=== PATIENT | male | born 1990 | race Caucasian/White ===

== ENCOUNTER → 2025-03-31 | Outpatient (CLI) | payer MEDICAID, SELFPAY ==
[2025-03-31 16:01] LABS: Absolute Lymphocyte Count 1.94 X10^3/uL (0.83-4.51); Absolute Neutrophil Count 8.3 X10^3/uL (2.0-7.7); Basophil# 0.03 X10^3/uL; Basophil% 0.3 % (0-1); Eosinophil# 0.33 X10^3/uL; Eosinophils% 2.9 % (0-5); Hematocrit 44.1 % (40-54); Hemoglobin 15.3 g/dL (13.0-16.5); Lymphocyte # 1.94 X10^3/ul (0.83-4.51); Mean Corp Hgb Conc 34.7 g/dL (32-36); Mean Corpuscular Volume 89.5 fL (80-94); Monocyte# 0.75 X10^3/uL; Monocyte% 6.6 % (0-10); NRBC Flagged by Analyzer 0 % (0-5); Neutrophil # 8.33 X10^3/uL (2.7-7.7); Neutrophil % 72.9 % (47-70); Platelet Count 241 K/mm3 (150-450); RBC Distribution Width CV 12.7 % (11.6-14.6); RBC Distribution Width SD 41.4 fl (35.1-43.9); Red Blood Count 4.93 M/mm3 (4.6-6.2); White Blood Count 11.4 K/mm3 (4.4-11.0)
[2025-03-31 16:41] LABS: ALB/GLOB Ratio 1.5 RATIO (0.9-2.4); AST(SGOT) 21 U/L (<=37); Alanine Aminotransfer ALT/SGPT 35 U/L (<=46); Albumin, Serum 4.3 g/dL (3.5-5.0); Alkaline Phosphatase 94 U/L (40-129); Anion Gap 10 (5-15); BUN 14 mg/dL (4-19); BUN/Creat Ratio 19.1 RATIO (10-20); Calcium,Total 9.1 mg/dL (7.6-11.0); Carbon Dioxide 26.4 mmol/L (21.0-32.0); Chloride 101 mmol/L (98-108); Cholesterol 172 mg/dL (<=200); Creatinine, Serum 0.74 mg/dL (0.70-1.20); EST Glomerular Filtration Rate 120 (>60); Globulin 2.9 g/dL (2.2-4.2); Glucose 91 mg/dL (70-99); High Density Lipoprotein 63 mg/dL; Low Density Lipoprotein Calc. 95 mg/dL; Potassium 4.1 mmol/L (3.3-5.1); Protein, Total 7.2 g/dL (5.9-8.4); Sodium Level 138 mmol/L (133-145); Total Bilirubin 0.81 mg/dL (0.00-1.30); Triglycerides 70 mg/dL; Very Low Density Lipoprotein 14 mg/dL (5-40); cholesterol:hdl ratio screen 2.73
[2025-03-31 16:44] LABS: Vitamin B12 549 pg/mL (180-914); Vitamin D,25 Hydroxy 14.7 ng/mL (30-100)
== END | disposition home or self-care (01) ==
LOC: VSLAB 14:04
PROVIDERS: PCP Nurse Practitioner Family; Visit Provider Nurse Practitioner Family
DX: R07.9 Chest pain, unspecified (principal); Z13.220 Encounter for screening for lipoid disorders; Z13.1 Encounter for screening for diabetes mellitus; R20.0 Anesthesia of skin
CPT/HCPCS: 36415; 80053; 80061; 82306; 82607; 82746; 83036; 83735; 84443; 85025

== ENCOUNTER 2025-07-24 13:42 | Emergency (ER) | payer MEDICAID, SELFPAY ==
[2025-07-24 13:43] VITALS: BP 97/76; PULSE 93; RESP 16; TEMP 37; O2SAT 100; BMI 30.3
--- OUTSIDE RECORDS SUMMARY | 2025-07-24 14:14 | XMS RPT_ITS | CCD ---
Author Organization [facility] Inform ion Partnership [facility] Care Team Providers Care Organ Pipe Voicer Name Role Phone BRANDON PACHECO Primary Care Provider BRANDON PACHECO Attending Provider MD MADAY MCCOY Primary Care Provider [phone] MD TADEO MCGEE Emergency Provider BRANDON PASCAL Primary Care Physician SPENCER VIEIRA, DR GRAHAM Attending BRANDON Pugh Primary Care Unavailable DR GLADYS PALMER MD Attending BRANDON Pugh Primary Care Unavailable GLADYS PALMER Attending Unavailable CARLOZ PETTIT Primary Care Unavailable Nadiya Melendez Attending Unavailable Nadiya Melendez Primary Care Unavailable Allergies Allergy Classification Reported Allergen(s) Allergy Type Date of Onset Reaction(s) Facility (1 source) Bee/Wasp/Ant venom Allergy to substance swelling [facility] (1 source) venom-honey bee Drug allergy (disorder) 08-23-2016 [facility] Repository Medications Current Medications Medication Drug Class(es) Dates Sig (Normalized) Sig (Original) acetaminophen 325 mg / oxyCODONE hydrochloride 5 mg oral tablet (1 source) Opioid Agonist Start: 01-28-2023 take 1 tablet by mouth four times daily Oxycodone Hcl/Acetaminophen (Percocet 5-325 Mg Tablet) 1 EACH Tablet Active 1 EACH PO Four Times a Day 12 January 28, 2023 12:00am aspirin 81 mg chewable tablet (2 sources) Platelet Aggregation Inhibitor, Nonsteroidal Anti-inflammatory Drug Start: 02-01-2021 take 1 tablet by mouth once daily Aspirin (Aspirin 81 Mg Chew Tablet) 81 MG Tablet Active 81 MG PO Daily February 01, 2021 12:40pm colchicine 0.6 mg oral tablet (2 sources) Start: 02-01-2021 take 1 tablet by mouth once daily Colchicine (Colchicine 0.6 Mg Tablet) 0.6 MG Tablet Active 0.6 MG PO Daily February 01, 2021 12:51pm 24 hr isosorbide mononitrate 30 mg extended release oral tablet (2 sources) Nitrate Vasodilator Start: 02-01-2021 take 1 tablet by mouth once daily Isosorbide Mononitrate Er (Imdur 30 Mg Tablet) 30 MG Tablet Active 30 MG PO Daily February 01, 2021 12:44pm nitroglycerin 0.4 mg sublingual tablet (2 sources) Nitrate Vasodilator Start: 02-01-2021 Nitroglycerin (Nitrostat 0.4 Mg Sl Tablet) 0.4 MG Bottle Active 0.4 MG SL Q5M February 01, 2021 12:40pm take one tab under the tongue every 5 minutes for chest pain maximum of 3 tablets pantoprazole 20 mg delayed release oral tablet (2 sources) Proton Pump Inhibitor Start: 02-01-2021 take 1 tablet by mouth once daily Pantoprazole Sodium (Protonix 20 Mg Tablet) 20 MG Tablet Active 20 MG PO Daily February 01, 2021 12:45pm Completed/Discontinued Medications Medication Drug Class(es) Dates Sig (Normalized) Sig (Original) metoprolol tartrate 25 mg oral tablet (3 sources) beta-Adrenergic Jazmin Start: 05-17-2024 End: 05-17-2024 metoprolol tartrate 25 mg oral tablet Start: 05/17/24 5:00:00 AM EDT, Dose = 50 mg, = 2 tab(s), Oral, prep pharm, 1 dose(s), Hold if SBP (mmHg) Notes: Take with food. 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-10-2017 Chronic Essential hypertension (1 source) Hypertensive disorder 08-29-2023 Chronic Fracture of lower limb (1 source) Fracture of ankle; Translations: [Other fracture of unspecified lower leg, initial encounter for closed fracture] 01-28-2023 Episodic Nonspecific chest pain (4 sources) Chest pain; Translations: [Chest pain, unspecified] Onset: 04-05-2025 01-30-2021 Episodic Other lower respiratory disease (1 source) Disorder of lung 03-07-2021 Episodic Residual codes; unclassified (2 sources) Current drinker; Translations: [Other problems related to lifestyle] 02-01-2021 Episodic Residual codes; unclassified (2 sources) Tobacco user; Translations: [Tobacco use] 02-01-2021 Episodic Results Test Name Value Interpretation Reference Range Facil ity CBC W/Diff, Automatedon 05-0 Absolute Lymph 1.94 X10 3/uL Normal 0.83-4.51 [facility] Comment on above: Performed By: #### L 100.0100, L500.4100, L503.0106, L501.9985, L501.5200, L506.1001, L501.9520, L500.4050, L506.0200 #### [facility] [address] [place], [address] Absolute Neut 8.3 X10 3/uL High 2.0-7.7 [facility] Comment on above: Performed By: #### L 100.0100, L500.4100, L503.0106, L501.9985, L501.5200, L506.1001, L501.9520, L500.4050, L506.0200 #### [facility] [address] [place], [address] Basophils/100 WBC (Bld) 0.3 % Normal 0-1 [facility] Comment on above: Performed By: #### L 100.0100, L500.4100, L503.0106, L501.9985, L501.5200, L506.1001, L501.9520, L500.4050, L506.0200 #### [facility] [address] [place], [address] Eosinophils/100 WBC (Bld) 2.9 % Normal 0-5 [facility] Comment on above: Performed By: #### L 100.0100, L500.4100, L503.0106, L501.9985, L501.5200, L506.1001, L501.9520, L500.4050, L506.0200 #### [facility] [address] [place], [address] (470) Erythrocyte distribution width (RBC) [Ratio] 12.7 % Normal 11.6-14.6 [facility] Comment on above: Performed By: #### L 100.0100, L500.4100, L503.0106, L501.9985, L501.5200, L506.1001, L501.9520, L500.4050, L506.0200 #### [facility] [address] [place], [address] (491) Hematocrit (Bld) [Volume fraction] 44.1 % Normal 40-54 [facility] Comment on above: Performed By: #### L 100.0100, L500.4100, L503.0106, L501.9985, L501.5200, L506.1001, L501.9520, L500.4050, L506.0200 #### [facility] [address] [place], [address] ( Hemoglobin (Bld) [Mass/Vol] 15.3 g/dL Normal 13.0-16.5 [facility] Comment on above: Performed By: #### L 100.0100, L500.4100, L503.0106, L501.9985, L501.5200, L506.1001, L501.9520, L500.4050, L506.0200 #### [facility] [address] [place], [address] IG% 0.300 Normal 0.0-0.9 [facility] Comment on above: Result Comment: IG% - Immature Granulocytes (promyelocytes, myelocytes and metamyelocytes) > 1% indicates that a LEFT SHIFT is Present. Performed By: #### L 100.0100, L500.4100, L503.0106, L501.9985, L501.5200, L506.1001, L501.9520, L500.4050, L506.0200 #### [facility] [address] [place], [address] Lymphocytes/100 WBC (Bld) 17.0 % Low 19-41 [facility] Comment on above: Performed By: #### L 100.0100, L500.4100, L503.0106, L501.9985, L501.5200, L506.1001, L501.9520, L500.4050, L506.0200 #### [facility] [address] [place], [address] MCH (RBC) [Entitic mass] 31.0 pg Normal 27.0-32.0 [facility] Comment on above: Performed By: #### L 100.0100, L500.4100, L503.0106, L501.9985, L501.5200, L506.1001, L501.9520, L500.4050, L506.0200 #### [facility] [address] [place], [address] MCHC (RBC) [Mass/Vol] 34.7 g/dL Normal 32-36 [facility] Comment on above: Performed By: #### L 100.0100, L500.4100, L503.0106, L501.9985, L501.5200, L506.1001, L501.9520, L500.4050, L506.0200 #### [facility] [address] [place], [address] MCV (RBC) [Entitic vol] 89.5 fL Normal 80-94 [facility] Comment on above: Performed By: #### L 100.0100, L500.4100, L503.0106, L501.9985, L501.5200, L506.1001, L501.9520, L500.4050, L506.0200 #### [facility] [address] [place], [address] Monocytes/100 WBC (Bld) 6.6 % Normal 0-10 [facility] Comment on above: Performed By: #### L 100.0100, L500.4100, L503.0106, L501.9985, L501.5200, L506.1001, L501.9520, L500.4050, L506.0200 #### [facility] [address] [place], [address] Neutrophils/100 WBC (Bld) 72.9 % High 47-70 [facility] Comment on above: Performed By: #### L 100.0100, L500.4100, L503.0106, L501.9985, L501.5200, L506.1001, L501.9520, L500.4050, L506.0200 #### [facility] [address] [place], [address] Nucleated RBC (Bld) [#/Vol] 0 10*3/uL Normal 0-5 [facility] Comment on above: Performed By: #### L 100.0100, L500.4100, L503.0106, L501.9985, L501.5200, L506.1001, L501.9520, L500.4050, L506.0200 #### [facility] [address] [place], [address] Platelet mean volume (Bld) [Entitic vol] 10.0 fL Normal 6.2-12.0 [facility] Comment on above: Performed By: #### L 100.0100, L500.4100, L503.0106, L501.9985, L501.5200, L506.1001, L501.9520, L500.4050, L506.0200 #### [facility] [address] [place], [address] Platelets (Bld) [#/Vol] 241 10*3/uL Normal 150-450 [facility] Comment on above: Performed By: #### L 100.0100, L500.4100, L503.0106, L501.9985, L501.5200, L506.1001, L501.9520, L500.4050, L506.0200 #### [facility] [address] [place], [address] RBC (Bld) [#/Vol] 4.93 10*6/uL Normal 4.6-6.2 [facility] Comment on above: Performed By: #### L 100.0100, L500.4100, L503.0106, L501.9985, L501.5200, L506.1001, L501.9520, L500.4050, L506.0200 #### [facility] [address] [place], [address] RDW SD 41.4 fl Normal 35.1-43.9 [facility] Comment on above: Performed By: #### L 100.0100, L500.4100, L503.0106, L501.9985, L501.5200, L506.1001, L501.9520, L500.4050, L506.0200 #### [facility] [address] [place], [address] WBC (Bld) [#/Vol] 11.4 10*3/uL High 4.4-11.0 [facility] Comment on above: Performed By: #### L 100.0100, L500.4100, L503.0106, L501.9985, L501.5200, L506.1001, L501.9520, L500.4050, L506.0200 #### [facility] [address] [place], [place], [id number] Comprehensive Metabolic Prof pron 03-31-2025 Albumin [Mass/Vol] 4.3 g/dL Normal 3.5-5.0 [facility] Comment on above: Performed By: #### L 100.0100, L500.4100, L503.0106, L501.9985, L501.5200, L506.1001, L501.9520, L500.4050, L506.0200 #### [facility] [address] [place], [place], [id number] Albumin/Globulin [Mass ratio] 1.5 {ratio} Normal 0.9-2.4 [facility] Comment on above: Performed By: #### L 100.0100, L500.4100, L503.0106, L501.9985, L501.5200, L506.1001, L501.9520, L500.4050, L506.0200 #### [facility] [address] [place], [place], [id number] ALK PHOS 94 U/L Normal 40-129 [facility] Comment on above: Performed By: #### L 100.0100, L500.4100, L503.0106, L501.9985, L501.5200, L506.1001, L501.9520, L500.4050, L506.0200 #### [facility] [address] [place], [place], [id number] ALT [Catalytic activity/Vol] 35 U/L Normal <=46 [facility] Comment on above: Performed By: #### L 100.0100, L500.4100, L503.0106, L501.9985, L501.5200, L506.1001, L501.9520, L500.4050, L506.0200 #### [facility] [address] [place], [place], [id number] (058) AST [Catalytic activity/Vol] 21 U/L Normal <=37 [facility] Comment on above: Performed By: #### L 100.0100, L500.4100, L503.0106, L501.9985, L501.5200, L506.1001, L501.9520, L500.4050, L506.0200 #### [facility] [address] [place], [place], [id number] (765) Bilirubin [Mass/Vol] 0.81 mg/dL Normal 0.00-1.30 [facility] Comment on above: Performed By: #### L 100.0100, L500.4100, L503.0106, L501.9985, L501.5200, L506.1001, L501.9520, L500.4050, L506.0200 #### [facility] [address] [place], [place], [id number] (247) BUN/CRE 19.1 RATIO Normal 10-20 [facility] Comment on above: Performed By: #### L 100.0100, L500.4100, L503.0106, L501.9985, L501.5200, L506.1001, L501.9520, L500.4050, L506.0200 #### [facility] [address] [place], [place], [id number] (339) Calcium [Mass/Vol] 9.1 mg/dL Normal 7.6-11.0 [facility] Comment on above: Performed By: #### L 100.0100, L500.4100, L503.0106, L501.9985, L501.5200, L506.1001, L501.9520, L500.4050, L506.0200 #### [facility] [address] [place], [address] Chloride [Moles/Vol] 101 mmol/L Normal 98-108 [facility] Comment on above: Performed By: #### L 100.0100, L500.4100, L503.0106, L501.9985, L501.5200, L506.1001, L501.9520, L500.4050, L506.0200 #### [facility] [address] [place], [address] CO2 [Moles/Vol] 26.4 mmol/L Normal 21.0-32.0 [facility] Comment on above: Performed By: #### L 100.0100, L500.4100, L503.0106, L501.9985, L501.5200, L506.1001, L501.9520, L500.4050, L506.0200 #### [facility] [address] [place], [address] Creatinine [Mass/Vol] 0.74 mg/dL Normal 0.70-1.20 [facility] Comment on above: Performed By: #### L 100.0100, L500.4100, L503.0106, L501.9985, L501.5200, L506.1001, L501.9520, L500.4050, L506.0200 #### [facility] [address] [place], [address] GAP 10 Normal 5-15 [facility] Comment on above: Performed By: #### L 100.0100, L500.4100, L503.0106, L501.9985, L501.5200, L506.1001, L501.9520, L500.4050, L506.0200 #### [facility] [address] [place], [address] GFR/1.73 sq M.predicted among non-blacks MDRD (S/P/Bld) [Vol rate/Area] 120 mL/min/{1.73_m2} Normal >60 [facility] Comment on above: Result Comment: mL/m in/1.73m2 CKD-EPI Creatinine Equation (2020) Performed By: #### L 100.0100, L500.4100, L503.0106, L501.9985, L501.5200, L506.1001, L501.9520, L500.4050, L506.0200 #### [facility] [address] [place], [address] (060) Globulin (S) [Mass/Vol] 2.9 g/dL Normal 2.2-4.2 [facility] Comment on above: Performed By: #### L 100.0100, L500.4100, L503.0106, L501.9985, L501.5200, L506.1001, L501.9520, L500.4050, L506.0200 #### [facility] [address] [place], [place], [id number] (466) Glucose [Mass/Vol] 91 mg/dL Normal 70-99 [facility] Comment on above: Performed By: #### L 100.0100, L500.4100, L503.0106, L501.9985, L501.5200, L506.1001, L501.9520, L500.4050, L506.0200 #### [facility] [address] [place], [place], [id number] (861) Potassium [Moles/Vol] 4.1 mmol/L Normal 3.3-5.1 [facility] Comment on above: Performed By: #### L 100.0100, L500.4100, L503.0106, L501.9985, L501.5200, L506.1001, L501.9520, L500.4050, L506.0200 #### [facility] [address] [place], [address] Sodium [Moles/Vol] 138 mmol/L Normal 133-145 [facility] Comment on above: Performed By: #### L 100.0100, L500.4100, L503.0106, L501.9985, L501.5200, L506.1001, L501.9520, L500.4050, L506.0200 #### [facility] [address] [place], [address] T PROT 7.2 g/dL Normal 5.9-8.4 [facility] Comment on above: Performed By: #### L 100.0100, L500.4100, L503.0106, L501.9985, L501.5200, L506.1001, L501.9520, L500.4050, L506.0200 #### [facility] [address] [place], [address] Urea nitrogen [Mass/Vol] 14 mg/dL Normal 4-19 [facility] Comment on above: Performed By: #### L 100.0100, L500.4100, L503.0106, L501.9985, L501.5200, L506.1001, L501.9520, L500.4050, L506.0200 #### [facility] [address] [place], [address] Folates,Serum (Folic Acid)on 03-31-2025 FOLATES,SERUM 11.40 ng/mL Normal 4.60-34.80 [facility] Comment on above: Order Comment: N Performed By: #### L 100.0100, L500.4100, L503.0106, L501.9985, L501.5200, L506.1001, L501.9520, L500.4050, L506.0200 #### [facility] [address] [place], [address] Hemoglobin A1con 03-31-2025 HbA1c (Bld) [Mass fraction] 5.0 % Normal <=5.6 [facility] Comment on above: Result Comment: Norm al < 5.7 % Prediabetic 5.7 - 6.4 % Diabetic >or= 6.5 % Please note range changes. Performed By: #### L 100.0100, L500.4100, L503.0106, L501.9985, L501.5200, L506.1001, L501.9520, L500.4050, L506.0200 #### [facility] [address] [place], [address] Lipid Profileon 03-31-2025 CHOL:HDL 2.73 Normal [facility] Comment on above: Performed By: #### L 100.0100, L500.4100, L503.0106, L501.9985, L501.5200, L506.1001, L501.9520, L500.4050, L506.0200 #### [facility] [address] [place], [address] Cholesterol [Mass/Vol] 172 mg/dL Normal <=200 [facility] Comment on above: Result Comment: Chol esterol level, Desirable <200 mg/dL Borderline high cholesterol 200-239 mg/dL High cholesterol >=240 mg/dL Recommendations of the NCEP Adult Treatment Panel for the following risk-cutoff thresholds for the [place] population. Performed By: #### L 100.0100, L500.4100, L503.0106, L501.9985, L501.5200, L506.1001, L501.9520, L500.4050, L506.0200 #### [facility] [address] [place], [address] Cholesterol in HDL [Mass/Vol] 63 mg/dL Normal [facility] Comment on above: Result Comment: Fely onal Cholesterol Education Program (NCEP) guidelines: <40 mg/dL: Low HDL-cholesterol (major risk factor for CHD) >= 60 mg/dL: High HDL-cholesterol (negative risk factor for CHD) HDL-cholesterol is affected by a number of factors, e.g. smoking, exercise, hormones, sex and age. Performed By: #### L 100.0100, L500.4100, L503.0106, L501.9985, L501.5200, L506.1001, L501.9520, L500.4050, L506.0200 #### [facility] [address] [place], [address] Cholesterol in LDL [Mass/Vol] 95 mg/dL Normal [facility] Comment on above: Result Comment: Bord hmhlet=027-500 mg/dL Higher Fjox=672 mg/dL or greater Performed By: #### L 100.0100, L500.4100, L503.0106, L501.9985, L501.5200, L506.1001, L501.9520, L500.4050, L506.0200 #### [facility] [address] [place], [address] Cholesterol in VLDL [Mass/Vol] 14 mg/dL Normal 5-40 [facility] Comment on above: Performed By: #### L 100.0100, L500.4100, L503.0106, L501.9985, L501.5200, L506.1001, L501.9520, L500.4050, L506.0200 #### [facility] [address] [place], [address] Triglyceride [Mass/Vol] 70 mg/dL Normal [facility] Comment on above: Result Comment: The drugs N-Acetylcysteine and Metamizole may falsely depress this assay. Normal range: <150 mg/dL Borderline High: 150-199 mg/dL High: 200-499 mg/dL Very High: >500 mg/dL Performed By: #### L 100.0100, L500.4100, L503.0106, L501.9985, L501.5200, L506.1001, L501.9520, L500.4050, L506.0200 #### [facility] [address] [place], [address] Magnesiumon 03-31-2025 Magnesium [Mass/Vol] 2.0 mg/dL Normal 1.5-2.2 [facility] Comment on above: Performed By: #### L 100.0100, L500.4100, L503.0106, L501.9985, L501.5200, L506.1001, L501.9520, L500.4050, L506.0200 #### [facility] [address] [place], [place], [id number] Thyroid Stim Hormone (TSH)on 03-31-2025 TSH 1.190 uIU/mL Normal 0.300-4.200 [facility] Comment on above: Performed By: #### L 100.0100, L500.4100, L503.0106, L501.9985, L501.5200, L506.1001, L501.9520, L500.4050, L506.0200 #### [facility] [address] [place], [place], [id number] Vitamin B12on 03-31-2025 Cobalamin (Vitamin B12) [Mass/Vol] 549 pg/mL Normal 180-914 [facility] Comment on above: Performed By: #### L 100.0100, L500.4100, L503.0106, L501.9985, L501.5200, L506.1001, L501.9520, L500.4050, L506.0200 #### [facility] [address] [place], [place], [id number] Vitamin D,25 Hydroxyon 03-31 Vitamin D 25-OH 14.7 ng/mL Low 30-100 [facility] Comment on above: Result Comment: Safia min D Status Deficiency: <20 ng/mL (50nmol/L) Insufficiency: 20-30 ng/mL (50-75 nmol/L) Sufficiency: 30-100 ng/mL (75-250 nmol/L) Toxicity: >100 ng/mL (>250 nmol/L) Performed By: #### L 100.0100, L500.4100, L503.0106, L501.9985, L501.5200, L506.1001, L501.9520, L500.4050, L506.0200 #### [facility] [address] [place], [place], [id number] Basic Metabolic Panelon 08-02 Anion gap [Moles/Vol] 12.2 mmol/L Normal 8.0-16.0 [facility] Comment on above: Performed By: #### B MP #### [facility] [address] [place] [address] Calcium [Mass/Vol] 8.6 mg/dL Normal 8.2-10.0 [facility] Comment on above: Performed By: #### B MP #### [facility] [address] [place] [address] Chloride [Moles/Vol] 104 mmol/L Normal 94-110 [facility] Comment on above: Performed By: #### B MP #### [facility] [address] [place] [address] CO2 [Moles/Vol] 30 mmol/L Normal 21-34 [facility] Comment on above: Performed By: #### B MP #### [facility] [address] [place] [address] Creatinine [Mass/Vol] 0.84 mg/dL Normal 0.50-1.17 [facility] Comment on above: Performed By: #### B MP #### [facility] [address] [place] [address] EGFR Other Races >60 Normal >60 [facility] Comment on above: Performed By: #### B MP #### [facility] [address] [place] [address] GFR/1.73 sq M.predicted among blacks MDRD (S/P/Bld) [Vol rate/Area] mL/min/{1.73_m2} Normal >60 [facility] Comment on above: Result Comment: Sheet Taker wendy Kidney Disease less than 60 mL/min/1.73 m2 Kidney Failure less than 15 mL/min/1.73 m2 Average estimated GFR by age: 30-39 years 107 mL/min/1.73 m2 Performed By: #### B MP #### [address] [place] [address] Glucose [Mass/Vol] 73 mg/dL Normal 65-100 [facility] Comment on above: Performed By: #### B MP #### [address] [place] [address] Potassium [Moles/Vol] 4.2 mmol/L Normal 3.3-5.1 [facility] Comment on above: Performed By: #### B MP #### [address] [place] [address] Sodium [Moles/Vol] 142 mmol/L Normal 132-145 [facility] Comment on above: Performed By: #### B MP #### [address] [place] [address] Urea nitrogen [Mass/Vol] 13.8 mg/dL Normal 3.2-26.9 [facility] Comment on above: Performed By: #### B MP #### [address] [place] [address] Urea nitrogen/Creatinine [Mass ratio] 16 mg/mg Normal 6-20 [facility] Comment on above: Performed By: #### B MP #### [facility] [address] [place] [address] Lipid Panelon 08-24-2024 Cholesterol [Mass/Vol] 183 mg/dL Normal 0-200 [facility] Comment on above: Performed By: #### L IPID #### [facility] [address] [place] [address] Cholesterol in HDL [Mass/Vol] 67 mg/dL Normal 39-96 [facility] Comment on above: Performed By: #### L IPID #### [facility] [address] [place] [address] Cholesterol in LDL [Mass/Vol] 104 mg/dL High 0-99 [facility] Comment on above: Performed By: #### L IPID #### [facility] [address] [place] [address] Cholesterol in VLDL [Mass/Vol] 12 mg/dL Normal 5-40 [facility] Comment on above: Performed By: #### L IPID #### [facility] [address] [place] [address] Cholesterol.total/Ch olesterol in HDL [Mass ratio] 2.7 {ratio} Normal 0.0-5.0 [facility] Comment on above: Performed By: #### L IPID #### [facility] [address] [place] [address] LDL/HDL Ratio 1.6 mg/dL Normal 0.0-3.6 [facility] Comment on above: Performed By: #### L IPID #### [facility] [address] [place] [address] Triglyceride [Mass/Vol] 60 mg/dL Normal 0-149 [facility] Comment on above: Result Comment: 150- 199 Borderline High 200-499 High >499 Very High Performed By: #### L IPID #### [address] [place] [address] Magnesiumon 08-24-2024 Magnesium [Mass/Vol] 2.1 mg/dL Normal 1.3-2.3 [facility] Comment on above: Performed By: #### M G #### [address] [place] [address] NT Pro-BNPon 08-24-2024 Natriuretic peptide B (Bld) [Mass/Vol] 15 pg/mL Normal 0-125 [facility] Comment on above: Result Comment: NOTE -Dietary supplements containing high biotin levels may cause significant interference with affected lab tests, including cardiovascular diagnostic tests and hormone tests that use biotin technology. Incorrect test results may be generated if there is biotin in the patients specimen. Performed By: #### P BNPG #### [address] [address] Vitamin D, 25-Hydroxyon 08-02 Vitamin D, 25-Hydroxy 31.5 ng/mL Normal 30.0-100.0 [facility] Comment on above: Result Comment: Safia min D deficiency has been defined by the [place] [employer] and an Endocrine Society practice guideline as a level of serum 25-OH vitamin D less than 20 ng/mL (1,2). The Endocrine Society went on to further define vitamin D insufficiency as a level between 21 and 29 ng/mL (2). 1. IOM ([place] [employer]). 2010. Dietary reference intakes for calcium and D. [place]: The National Academies Press. 2. Rell MF, [place], Jarret ALVARADO, et al. Evaluation, treatment, and prevention of vitamin D deficiency: an Endocrine Society clinical practice guideline. JCEM. 2010; 96(7):1911-30. Performed at: [address] [id number] [employer] Operator: Lionel Rincon PhD, Phone: [phone] Performed By: #### V D25 #### [place] [id number] CORONARY ANGIOGRAPHY W+W/ O CONTRASTon 05-22-2024 CT CORONARY ANGIOGRAPHY W+W/O CONTRAST ORIGINAL CT CORONARY ANGIOGRAPHY W+W/O CONTRAST PATIENT NAME:JEM MAK : 1990 GENDER: Male ORDERING PROVIDER:GLADYS PALMER CLINICAL STATEMENT: chest pain LEFT SIDE CP PATIENT NAME:JEM MAK : 1990 GENDER: Male ORDERING PROVIDER:GLADYS PALMER CLINICAL STATEMENT: chest pain LEFT SIDE CP. TECHNIQUE: 1. Noncontrast CT of the heart was obtained for calcium scoring. 2. CTA with 105 c.c Omnipaque 350 IV contrast performed using prospective ECG gating about 1 cm above the AV to the diaphragm. FOV is very small to best evaluate the coronary arteries. Non-coronary chest anatomy is evaluated by Radiologist (Split read). Cumulative dose is mSv 3. 3D postprocessing: MPR, MIP, +/- CPR, and volume rendering were performed. 4. This exam was performed according to our departmental dose optimization program, and includes the following measures where applicable: automated exposure control, adjustment of the mAs and/or kVp according to patient size and/or exam, and an iterative reconstruction algorithm. 5. This report adheres to SCCT / ACR / NASCI 2016 expert consensus document entitled, CAD-RADS(TM) Coronary Artery Disease - Reporting and Data System. MEDS: PO metoprolol (mg): \X09\50 IV metoprolol (mg): \X09\None Nitroglycerin (mg): \X09\0.4 SL COMPLICATIONS: None ACQUISITION HR (bpm): , regular rhythm. TECHNICAL QUALITY: \X09\Good with minor artifact but good diagnostic quality. LIMITATIONS: \[id number]\None Abbreviations: LM: left main, RCA: right coronary artery, PDA: posterior descending artery, PLB: posterolateral branch, AM: acute marginal, LAD: left anterior descending, LCx: left circumflex artery, OM: obtuse marginal, Dx: diagonal, D1: first diagonal, D2: second diagonal, HR: heart rate, RI: ramus intermedius, PA: pulmonary artery FINDINGS: COMPARISON: None Most of the non-coronary chest anatomy is excluded in the FOV. CARDIAC FINDINGS: NON-CORONARY HEART: \X0909\Not enlarged. PERICARDIUM:\X09\Con tour preserved. No effusion. No thickening. No calcifications. AV: \[id number]\Tricuspid. No thickening. No calcifications. MV: \[id number]\No thickening. No calcifications. CORONARY CALCIUM SCORING AGATSTON SCORE \X09\LM:\X09\0 \X09\LAD:\X09\0 \X09\LCx:\X09\0 \X09\RCA:\X09\0 \X09\TOTAL: 0 DOMINANCE:\X09\Right ANATOMY:\X09\Normal origin and course. LM originates from L coronary sinus and RCA originates from R coronary sinus. LM gives rise to the LAD and LCx. . . Coronary CTA interpretation utilizes diagonal branches to segment the LAD (prox, mid, distal) rather than the septal branches (as used on conventional angiography) as the latter are too small to visualize on CTA consistently. Left main: Normal. LAD and diagonal branches: Normal. Left circumflex and obtuse marginal branches: Normal. Right coronary artery, PDA, and posterior lateral branches: Dominant. Normal. Ramus Intermedius: (high OM1/RI) - Normal. NON-CARDIAC FINDINGS: See separate report from radiologist under CT coronary extracardiac. IMPRESSION: 1. Noncardiac findings were independently reported by Radiologist. See Radiologist interpretation under Noncardiac findings. 2. CAD-RADS 0 3. No significant coronary artery stenosis. No evidence of anomalous coronaries. 4. Agatston score: 0 CAD-RADS 0 Degree of maximal coronary stenosis = 0% (No plaque or stenosis) Interpretation = Documented absence of CAD Recommendation = None Interpreted By: Og Ortega Preliminary Report By: Og Ortega Electronically Signed By: Og Ortega Dictated Date: 05/22/2024 6:38:45 PM Prelim Date: 05/22/2024 6:38:45 PM Sign Date: 05/22/2024 6:49:00 PM Ordering Provider:Gladys Palmer [facility] ([place]) CT CORONARY EXTRACARDIACon 0 05-18-2024 CT CORONARY EXTRACARDIAC ORIGINAL EXAMINATION: CT THORAX WITH CONTRAST EXTRACARDIAC 05/17/2024 11:06 am TECHNIQUE: CT of the chest with the administration of intravenous contrast. Multiplanar reformatted images are provided for review. Automated exposure control, iterative reconstruction, and/or weight based adjustment of the mA/kV was utilized to reduce the radiation dose to as low as reasonably achievable. Cardiac images were obtained and reported separately in a report from cardiology. COMPARISON: 01/31/2021 CTA chest HISTORY: ORDERING SYSTEM PROVIDED HISTORY: Reason for Exam: LEFT SIDE CP chest pain FINDINGS: CT heart dictated separately by cardiology service. No acute osseous abnormality. No visible axillary lymphadenopathy. No adenopathy within the visualized mediastinum or hilar structures. The great vessels are grossly unremarkable on this nondedicated study. No pleural effusion or pneumothorax within the visualized lungs. No focal consolidation. Limited images of the upper abdomen are unremarkable. Mild bilateral gynecomastia. IMPRESSION: Please see separately dictated CT heart by the cardiology service. No acute abnormality identified within the visualized chest. I have personally reviewed the images of this examination, agree with resident's findings and interpretation. Interpreted by: Luzmaria Barnard MD Preliminary Report By: Lakhwinder Perea Electronically signed By Luzmaria Barnard MD Dictated Date: 05/18/2024 10:52:07 AM Prelim Date: 05/18/2024 11:09:03 AM Sign Date: 05/18/2024 11:09:03 AM Ordering Provider: GLADYS Martinez [facility] ([place]) USAMAOVronald 08-31-2019 CN Office Visit (UCWSTR) JEM MAK ([id number]) 1990 M Date Time Provider Department 08/31/19 7:00 PM PRIYANKA YOUNG) [facility] During your visit today, we recorded the following information about you: Temperature Pulse Respiration Weight 98.9 degrees 78/minute 16/minute 63.5 kg Priyanka Young APRN.CNP 08/31/2019 8:19 PM Signed Subjective HPI HPI Jem Mak is a 29 year old male who presents today for CC of sore throat, fever. This started 4 days ago. Has tried otc medicatoin. Symptoms are worsened by nothing. Risk factors no sick exposures. Is a smoker. .Patient presents with: Headache: chills, fever and bodyaches x 4 days No past medical history on file. No past surgical history on file. ALLERGIES Patient has no known allergies. -This section reviewed with patient, no changes MEDICATIONS AMOXICILLIN 875 MG TAB 1 po twice daily for 10 days No family history on file. Social History Tobacco Use - Smoking status: Current Every Day Smoker - Smokeless tobacco: Never Used Substance Use Topics - Alcohol use: Not on file - Drug use: Not on file Review of Systems Constitutional: Positive for chills, fever and malaise/fatigue. HENT: Positive for sore throat. Negative for congestion, ear pain and nosebleeds. Respiratory: Negative for cough, shortness of breath and wheezing. Musculoskeletal: Negative for neck pain. Skin: Negative for itching and rash. Objective Pulse 78, temperature 37.2 ?C (98.9 ?F), temperature source Tympanic, resp. rate 16, weight 63.5 kg (140 lb), SpO2 98 %. Physical Exam Constitutional: He is oriented to person, place, and time and well-developed, well-nourished, and in no distress. Non-toxic appearance. He does not have a sickly appearance. No distress. HENT: Head: Normocephalic and atraumatic. Right Ear: Hearing, tympanic membrane, external ear and ear canal normal. Left Ear: Hearing, tympanic membrane, external ear and ear canal normal. Nose: Nose normal. Mouth/Throat: Uvula is midline and mucous membranes are normal. Posterior oropharyngeal erythema present. No oropharyngeal exudate, posterior oropharyngeal edema or tonsillar abscesses. Eyes: Pupils are equal, round, and reactive to light. Conjunctivae and lids are normal. Right eye exhibits no discharge. Left eye exhibits no discharge. No scleral icterus. Neck: Trachea normal and normal range of motion. Neck supple. Cardiovascular: Normal rate, regular rhythm and normal heart sounds. Pulmonary/Chest: Effort normal and breath sounds normal. Lymphadenopathy: He has cervical adenopathy. Right cervical: Superficial cervical adenopathy present. Left cervical: Superficial cervical adenopathy present. Neurological: He is alert and oriented to person, place, and time. Skin: No rash noted. He is not diaphoretic. ASSESSMENT/PLAN: 1. Strep throat - ICD9: 034.0, ICD10: J02.0 - suspect strep - Rapid Strep positive in the office today - antibiotic as written and Amoxicillin for 10 days. - Discussed supportive care treatment with fluids, rest and analgesia. - The patient should follow up in 3-5 days if symptoms persist or worsen - Call back if drooling, increased temperature, symptoms of dehydration and/or still sick in one week - AMOXICILLIN 500 MG CAPSULE - RAPID STREP TEST B/O Prescription instructions reviewed with patient as applicable. Patient advised if symptoms do not improve or if symptoms worsen sooner, to contact the office for further evaluation by their primary care physician. Potential red flag symptoms discussed with the patient. Reviewed appropriate action plan to take if red flag symptoms occur. Patient agreeable to treatment plan. Priyanka Young APRN.NISA Young APRN.CNP 08/31/2019 7:26 PM Signed STREP INFECTIONS: Streptococcal bacteria can cause a sore throat, ear and sinus infections, and skin diseases. Strep throat is diagnosed by a special throat swab or culture test. These infections require either an antibiotic shot or an oral antibiotic medicine to get rid of all the bacteria and prevent rheumatic fever, a dangerous complication. The symptoms of Strep infection, however, usually get better after just 2-3 days of drug treatment. These infections are very contagious; any close contacts who have a fever, sore throat, or illness symptoms should see their doctor right away. Strep is no longer contagious after 24 hours of antibiotic treatment so you may return to school or work if your fever and pain are better in one day. Strep infections can cause serious complications including throat abscess, rheumatic fever and kidney disease, so be sure to take all your antibiotic medicine. See your doctor or return here if your symptoms worsen or are not improved in 3 days or for diffuculty breathing or inability to swallow. Referring Provider: SELF [200] Allergies As of Date: 08/31/2019 (No Known Allergies) Date Reviewed: 08/31/2019 Reviewed by: Mojgan Silverman Ma - Fully Assessed Reason for Visit: Headache [52] Cmt: chills, fever and bodyaches x 4 days Primary Visit Diagnosis:Strep throat [J02.0] Order(s):amoxicillin (POLYMOX, AMOXIL) 500 mg capsuleTake 1 capsule by mouth twice daily for 10 days.Disp: 20 capsuleRfl: 0 RAPID STREP TEST B/O [[id number]] Order #: [id number] Prescriptions as of 08/31/2019 Sig: AMOXICILLIN 500 MG CAPSULE Take 1 capsule by mouth twice* Problem List As Of Date: 08/31/2019 (None) Other instructions from your clinician: STREP INFECTIONS: Streptococcal bacteria can cause a sore throat, ear and sinus infections, and skin diseases. Strep throat is diagnosed by a special throat swab or culture test. These infections require either an antibiotic shot or an oral antibiotic medicine to get rid of all the bacteria and prevent rheumatic fever, a dangerous complication. The symptoms of Strep infection, however, usually get better after just 2-3 days of drug treatment. These infections are very contagious; any close contacts who have a fever, sore throat, or illness symptoms should see their doctor right away. Strep is no longer contagious after 24 hours of antibiotic treatment so you may return to school or work if your fever and pain are better in one day. Strep infections can cause serious complications including throat abscess, rheumatic fever and kidney disease, so be sure to take all your antibiotic medicine. See your doctor or return here if your symptoms worsen or are not improved in 3 days or for diffuculty breathing or inability to swallow. Prescriptions ordered this encounter Disp Refills Start End AMOXICILLIN 500 MG CAPSULE 20 c* 0 08/31/2019 09/10/2019 Route: ORAL Sig: Take 1 capsule by mouth twice daily for 10 days. Medications Discontinued During This Encounter AMOXICILLIN 875 MG TAB 20 0 08/15/2006 08/31/2019 Class: Print RX Route: ORAL Si po twice daily for 10 days Patient not taking: Disc: Reason for discontinue is not on file. Encounter Status:Closed by PRIYANKA YOUNG CNP on 08/31/19 [facility] PROGRESSon 08-31-2019 PROGRESS HNO ID: [id number] Author: Priyanka Miranda) Service: ? Author Type: Nurse Practitioner Type: Progress Notes Filed: 08/31/2019 8:19 PM Note Text: Subjective HPI HPI Jem Mak is a 29 year old male who presents today for CC of sore throat, fever. This started 4 days ago. Has tried otc medicatoin. Symptoms are worsened by nothing. Risk factors no sick exposures. Is a smoker. .Patient presents with: Headache: chills, fever and bodyaches x 4 days No past medical history on file. No past surgical history on file. ALLERGIES Patient has no known allergies. -This section reviewed with patient, no changes MEDICATIONS AMOXICILLIN 875 MG TAB 1 po twice daily for 10 days No family history on file. Social History Tobacco Use - Smoking status: Current Every Day Smoker - Smokeless tobacco: Never Used Substance Use Topics - Alcohol use: Not on file - Drug use: Not on file Review of Systems Constitutional: Positive for chills, fever and malaise/fatigue. HENT: Positive for sore throat. Negative for congestion, ear pain and nosebleeds. Respiratory: Negative for cough, shortness of breath and wheezing. Musculoskeletal: Negative for neck pain. Skin: Negative for itching and rash. Objective Pulse 78, temperature 37.2 ?C (98.9 ?F), temperature source Tympanic, resp. rate 16, weight 63.5 kg (140 lb), SpO2 98 %. Physical Exam Constitutional: He is oriented to person, place, and time and well-developed, well-nourished, and in no distress. Non-toxic appearance. He does not have a sickly appearance. No distress. HENT: Head: Normocephalic and atraumatic. Right Ear: Hearing, tympanic membrane, external ear and ear canal normal. Left Ear: Hearing, tympanic membrane, external ear and ear canal normal. Nose: Nose normal. Mouth/Throat: Uvula is midline and mucous membranes are normal. Posterior oropharyngeal erythema present. No oropharyngeal exudate, posterior oropharyngeal edema or tonsillar abscesses. Eyes: Pupils are equal, round, and reactive to light. Conjunctivae and lids are normal. Right eye exhibits no discharge. Left eye exhibits no discharge. No scleral icterus. Neck: Trachea normal and normal range of motion. Neck supple. Cardiovascular: Normal rate, regular rhythm and normal heart sounds. Pulmonary/Chest: Effort normal and breath sounds normal. Lymphadenopathy: He has cervical adenopathy. Right cervical: Superficial cervical adenopathy present. Left cervical: Superficial cervical adenopathy present. Neurological: He is alert and oriented to person, place, and time. Skin: No rash noted. He is not diaphoretic. ASSESSMENT/PLAN: 1. Strep throat - ICD9: 034.0, ICD10: J02.0 - suspect strep - Rapid Strep positive in the office today - antibiotic as written and Amoxicillin for 10 days. - Discussed supportive care treatment with fluids, rest and analgesia. - The patient should follow up in 3-5 days if symptoms persist or worsen - Call back if drooling, increased temperature, symptoms of dehydration and/or still sick in one week - AMOXICILLIN 500 MG CAPSULE - RAPID STREP TEST B/O Prescription instructions reviewed with patient as applicable. Patient advised if symptoms do not improve or if symptoms worsen sooner, to contact the office for further evaluation by their primary care physician. Potential red flag symptoms discussed with the patient. Reviewed appropriate action plan to take if red flag symptoms occur. Patient agreeable to treatment plan. Priyanka Young APRN.PARCEL WRAPPER Normal [facility] Vital Signs Date Time Vital Sign Value Performing Clinician Facility 05-17-2024 11:15-0400 Diastolic Blood Pressure Non-Invasive 66 mm[Hg] DR GLADYS PALMER MD [address] [place] [address] 05-17-2024 11:15-0400 Heart rate 70 /min DR GLADYS PALMER MD [address] 05-17-2024 11:15-0400 Systolic Blood Pressure Non-Invasive 111 mm[Hg] DR GLADYS PALMER MD [address] 05-17-2024 10:59-0400 Diastolic Blood Pressure Non-Invasive 51 mm[Hg] DR GLADYS PALMER MD [facility] 05-17-2024 10:59-0400 Heart rate 61 /min DR GLADYS PALMER MD [facility] 05-17-2024 10:59-0400 Respiratory rate 16 /min DR GLADYS PALMER MD [address] [place] [address] 05-17-2024 10:59-0400 Systolic Blood Pressure Non-Invasive 99 mm[Hg] DR GLADYS PALMER MD [address] 05-17-2024 10:55-0400 Diastolic Blood Pressure Non-Invasive 55 mm[Hg] DR GLADYS PALMER MD [address] [place] [address] 05-17-2024 10:55-0400 Heart rate 71 /min DR GLADYS PALMER MD [address] [place] [address] 05-17-2024 10:55-0400 Systolic Blood Pressure Non-Invasive 95 mm[Hg] DR GLADYS PALMER MD [address] [place] [address] 05-17-2024 08:56-0400 Heart rate 69 /min DR GLADYS PALMER MD [address] [place] [address] 05-17-2024 08:46-[address] GLADYS PALMER MD [address] [place] [address] 05-17-2024 08:46-[address] GLADYS PALMER MD [address] [place] [address] 05-17-2024 08:46-0400 Body temperature 97.52 [degF] DR GLADYS PALMER MD [address] [place] [address] 05-17-2024 08:46-0400 Respiratory rate 18 /min DR GLADYS PALMER MD [address] [place] [address] 05-14-2024 16:39-0400 Body height [address] GLADYS PALMER MD [address] [place] [address] 05-14-2024 16:39-0400 Body weight 72.[address] GLADYS PALMER MD [address] [place] [address] 05-14-2024 16:39-0400 Body weight 28.4 kg/m2 DR GLADYS PALMER MD [address] [place] [address] 01-28-2023 14:42-0500 Diastolic blood pressure 76 mm[Hg] MD MADAY MCCOY Work Phone: [facility] 01-28-2023 14:42-0500 Heart rate 88 /min MD MADAY MCCOY Work Phone: [facility] 01-28-2023 14:42-0500 Respiratory rate 18 /min MD MADAY MCCOY Work Phone: [facility] 01-28-2023 14:42-0500 SaO2% (BldA) [Mass fraction] 98 % MD MADAY MCCOY Work Phone: [facility] 01-28-2023 14:42-0500 Systolic blood pressure 133 mm[Hg] MD MADAY MCCOY Work Phone: [facility] 01-28-2023 12:46-0500 Body temperature 98.7 [degF] MD MADAY MCCOY Work Phone: [facility] 01-28-2023 12:46-0500 Body weight 65.77 kg MD MADAY MCCOY Work Phone: [facility] 02-21-2021 10:20-0400 Heart rate 83 /min BRANDON TARA Work Phone: [facility] Work Phone: 02-21-2021 10:20-0400 Respiratory rate 18 /min BRANDON TARA Work Phone: [facility] Work Phone: 02-21-2021 10:20-0400 SaO2% (BldA) [Mass fraction] 98 % BRANDON TARA Work Phone: [facility] Work Phone: Encounters Encounter Date Encounter Type Care Provider Facility Start: 03-31-2025 End: 03-31-2025 ambulatory Nadiya Melendez Facility:[facility] Start: 08-24-2024 End: 08-24-2024 ambulatory GLADYS PALMER Facility: Start: 05-17-2024 End: 05-17-[address] GLADYS PALMER MD Facility:A Start: 05-17-2024 End: 05-17-[address] GLADYS PALMER MD [facility] Start: 04-12-[address] GLADYS PALMER MD F acility:A Start: 01-28-2023 End: 01-28-2023 Emergency department patient visit MD MADAY MCCOY Work Phone: [facility] Start: 02-21-2021 End: 02-21-2021 Patient encounter procedure BRANDON PACHECO Work Phone: -RESPIRATORY THERAPY Procedures Date Procedure Procedure Detail Performing Clinician Start: 01-28-2023 X-ray of right ankle MD MADAY MCCOY Work Phone: Foot structure (body structure) DR GLADYS PALMER MD None (qualifier value) DR GRADY MONTAGUE MD Plan of Treatment Date Care Activity Detail Author Patient Education Ankle Fracture Rehab Ankle Fracture [facility] Work Phone: Patient referral [facility] Work Phone: Payers Date Payer Category Payer Self-pay 2019 Unknown [id number] 1990 Unknown [id number] [id number] 1990 Unknown [id number] Unknown [id number] Unknown [id number] Social History Date Type Detail Facility Start: 01-31-2021 End: 01-28-2023 Tobacco smoking status NHIS Current Heavy tobacco smoker [facility] Start: 1990 Sex Assigned At Male C [facility] Start: 01-28-2023 Occasionally [facility] Start: 01-28-2023 No [facility] Start: 10-03-2023 Tobacco smoking status Light tobacco smoker (finding) [facility] [place] Sex Assigned At Sex [facility] Goals Date Patient Goal Desired Activity /State Functional Status Date Assessment Result Facility 05-17-2024 Functional Status Activity Assistance Ind ependent [facility] 05-17-2024 Functional Status Standard Safet y ID band on, Allergy Band on [facility] 05-14-2024 Functional Status Sensory Deficits None A [facility] Mental Status Date Assessment Result Facility 05-17-2024 Mental Status Orientation Oriented x 4 [facility] 01-28-2023 Cognitive function Level Of Cons ciousness Awake;Alert;Appropriate [facility] Work Phone: Hospital Discharge instructions 05-17-2024 Note Date & Type Note Facility 05-17-2024 Hospital Discharg e instructions Patient Education 05/17/2024 09:08:19 Radiology- CT Coronary Angiogram (CUSTOM) [place] Coronary CT Angiogram (Coronary CTA or Cardiac CTA) Discharge Instructions [facility] Imaging Services [address] [place] [address] Today, you had a Coronary CT Angiogram. This procedure was done to look at the anatomy of your heart and the surrounding vessels. The images obtained are to help evaluate the presence of coronary heart disease. These instructions should be followed after your procedure to reduce the chance of experiencing complications. Please follow the instructions below to reduce the chance of experiencing complications. Activity: Rest for the remainder of the day. You may resume your normal activity tomorrow. Avoid alcoholic beverages for 24 hours after your procedure. Do not drive or operate heavy machinery for 24 hours after your procedure. Do not make any legal decisions for 24 hours after your procedure. Diet: Resume your normal diet as tolerated. Medication: Please resume scheduled medications. When to seek medical help: Arm, neck or jaw pain Angina (chest pain) or chest discomfort Shortness of breath Dizziness or lightheaded Hives or itching If you experience any of these issues during the first 24 hours, please follow the instruction below or go to the Emergency Department: 8:00 am- 5:00 pm call [phone] After 5:00 pm call [phone] After 24 hours, contact the physician who ordered this procedure for you. Obtaining test results: Please make an appointment with your doctor to obtain your test results. They are usually available within 4 to 5 business days. Do not assume everything is normal if you have not heard from your doctor or medical facility. It is important for you to follow up on all of your test results. Follow Up Care 04/15/2024 09:07:55 With:GLADYS PALMER MD Address: [address] [place] [address] [address] [place] [address] [phone] When: Unknown Comments:Follow-up as needed Follow-up as scheduled With:Go to emergency room if symptoms worsen Address:Unknown When: Unknown [facility] Summary of episode note 05-17-2024 Note Date & Type Note Facility 05-17-2024 Summary of episod e note Discharge Instructions Thank you for allowing [facility] to assist you with your healthcare needs. The following is important discharge information regarding your hospital visit. Your Care Team BRANDON PACHECO PA What to do next Follow Up Appointments Follow Up with GLADYS PALMER MD Where:[facility] [address] [place] [address]- [phone] Additional Information: Follow-up as needed Follow-up as scheduled Follow Up with Go to emergency room if symptoms worsen Allergies Bee Stings swelling Medications Please ask your primary doctor or pharmacist before taking any other medication not listed, including over the counter drugs, herbal medications, vitamins and or supplements as they may interact with your home medications. Please take this list to your next doctor s visit. Bring all medications you take, including over the counter medications, herbals and other supplements with you to your doctor s visit. Patients and families are reminded to discard old lists and to update any records with all medication providers or retail pharmacies. Education Materials [place] Coronary CT Angiogram (Coronary CTA or Cardiac CTA) Discharge Instructions [facility] Imaging Services [address] [address] Today, you had a Coronary CT Angiogram. This procedure was done to look at the anatomy of your heart and the surrounding vessels. The images obtained are to help evaluate the presence of coronary heart disease. These instructions should be followed after your procedure to reduce the chance of experiencing complications. Please follow the instructions below to reduce the chance of experiencing complications. Activity: Rest for the remainder of the day. You may resume your normal activity tomorrow. Avoid alcoholic beverages for 24 hours after your procedure. Do not drive or operate heavy machinery for 24 hours after your procedure. Do not make any legal decisions for 24 hours after your procedure. Diet: Resume your normal diet as tolerated. Medication: Please resume scheduled medications. When to seek medical help: Arm, neck or jaw pain Angina (chest pain) or chest discomfort Shortness of breath Dizziness or lightheaded Hives or itching If you experience any of these issues during the first 24 hours, please follow the instruction below or go to the Emergency Department: 8:00 am- 5:00 pm call [phone] After 5:00 pm call [phone] After 24 hours, contact the physician who ordered this procedure for you. Obtaining test results: Please make an appointment with your doctor to obtain your test results. They are usually available within 4 to 5 business days. Do not assume everything is normal if you have not heard from your doctor or medical facility. It is important for you to follow up on all of your test results. Additional Information VACCINATE! IT SAVES LIVES! Members of the community who have not yet received the COVID-19 vaccine and would like to receive it can visit one of [facility] vaccine clinics. There are many vaccine clinic locations within the [facility]. For locations and available times, please visit [email or web address] It is important to note that some COVID mobile vaccine clinics are held outdoors and may be canceled in rainy or stormy conditions. To learn more about pediatric vaccinations (ages 5-11), we invite you to visit the [facility] webpage. https://www.akNetlists.org/pages/2 900-Dwafe-Cohqchmadom-Frequently-Asked -Questions.html To learn more about the COVID-19 vaccine, we invite you to visit the CDC website for a list of frequently asked questions.https://www.cdc.gov/coronavi dayanara/2019-ncov/vaccines/faq.html [facility] Patient Portal Access Instructions: Stay connected with your healthcare team and access your personal medical information anytime with the [facility] Patient Portal. Please follow the directions below to create your [facility] account: 1.Access the email account you provided upon registration to the hospital/physician office.2.Look for an invitation email from [facility].3.Open the email and access the invitation link: Accept Invitation to [facility].4.Fill in the required dominguez to create your account. To access your account, visit [email or web address]. Click the blue button labeled Access Patient Portal and then log in with the username and password that you created in the steps above. You will be able to view your test results, lab results, a summary of your visits, upcoming appointments and more. There is also a convenient messaging option where you can send secure messages to your provider. In addition, you will have the ability to download any documents or summaries to your computer and/or send the information securely to a physician. Remember that your healthcare information is confidential, so carefully consider who you will allow to register on the [facility] Patient Portal for access to your information. You can also access the [facility] Patient Portal on the [employer] jasson. Simply click on Patient Portal and then log into your account. If you would like to receive a full copy of your medical records, please contact the [facility] Medical Records Department by calling [phone], Friday through Friday between 8 a.m. and 4:30 p.m. HOW TO SAFELY DISPOSE OF PRESCRIPTION MEDICATIONS Please use one of the following methods to safely dispose of your unused medications. 1.Use a drug disposal kit: the drug disposal pouch allows you to safely discard your old and unused drugs. Ask your nurse to give you one when you are discharged.2.Visit a local take-back location: Many local pharmacies and police departments have programs that collect old and unwanted prescription drugs. Call your local pharmacy or go to http://bit.Avaamo/2R1Ri4b to find one close to you.3.Make use of household items: Use cat litter or old coffee grounds to dispose medications if other options are not available. Mix your drugs with these household products, seal them in an airtight container and throw it into the garbage. Call [facility]: [phone] to be sure your drugs can be disposed of in this way. Some medicines may require a different approach.4.Never flush your medications down the toilet. IF YOU HAVE BEEN PRESCRIBED AN OPIOID FOR PAIN If you have been prescribed an opioid (such as hydrocodone, oxycodone or morphine), it is critical to understand the possible side effects and risks of opioid pain medications. Even when taken as directed, opioids can have several side effects including: Tolerance, meaning you might need to take more of a medication for the same pain relief. Nausea, vomiting and/or constipation. Sleepiness, dizziness, dry mouth, confusion, depression or itching. Physical dependence, meaning you have withdrawal symptoms when a medication is stopped, can develop within a few days. KNOW YOUR RESPONSIBILITIES It is important to know exactly how much and how often to take the opioid pain medications you are prescribed. Never take opioids in higher amounts or more often than prescribed. Do not combine opioids with alcohol or other drugs that cause drowsiness, such as benzodiazepines, also known as benzos, including diazepam and alprazolam, muscle relaxants or sleep aids. Never sell or share prescription opioids. This is illegal. Store opioids in a secure place and out of reach of others (including children, family, friends and visitors). The last page of this document has been signed and retained as a CHART COPY. Signatures Patient Education Materials Radiology- CT Coronary Angiogram (CUSTOM) Medication Leaflets My discharge plan and instructions have been reviewed and explained to me and IAUBREE DAMON A understand my current condition and have read and understand these discharge instructions. I have received a written copy of the plan/instructions. If I have questions, I am aware that I should contact my doctor. 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 Signature: _ Date/Time: Relationship to Patient: Witness Name/Signature: Date/Time: [facility] Evaluation + Plan note 01-03-2024 LaboratoryRadiology Note Date & Type Note Facility 01-03-2024 Evaluation + Plan note Future Scheduled TestsBasic Metabolic Panel 01/03/24C-Reactive Protein 08/29/23D-Dimer 08/29/23Magnesium Level 08/29/23Lipid Profile 01/03/24Sedimentation Rate Automated 08/29/23Vitamin D Level 08/29/23Complete Metabolic Panel 08/29/23N-Terminal proBNP 01/03/24N-Terminal proBNP 08/29/23CT Coronary Angiography w+w/o Contrast 04/09/24 [facility] Discharge summary Note Date & Type Note Facility Discharge summary Note Date/Time January 28, 2023 1:19pm [facility] [address] [place] [address] [facility] INFORMATION MANAGEMENT EMERGENCY DEPARTMENT : [phone] Signed Patient: JEM MAK Acct:[id number] MRUN: [id number] : 1990 Sex: M Loc: ED AD M Date: 01/28/23 Room/Bed: DISC Date: History of Present Illness - General Chief complaint: Pain Symptom onset: last night HPI: 32 yo male per chart review has a h/o GERD, HTN presents to the ED with R ankle pain. Pt notes he was walking down the stairs last night and he twisted his R ankle. Pt notes moderate, cosntant, throbbing, R ankle pain since this am. +Swelling. Pt denies fever, cp, sob, dysuria, diarrhea. Time Seen by Provider: 01/28/23 12:53 Mode of Transport: [facility] - Related Data Home Medications Medication Instructions Recorded Confirmed Aspirin [Aspirin 81 mg Chew Tablet] 81 mg PO DAILY tablet 02/01/21 Colchicine [Colchicine 0.6 mg 0.6 mg PO DAILY #30 tablet 02/01/21 Tablet] Isosorbide Mononitrate ER [Imdur 30 mg PO DAILY #30 tab.sr.24h 02/01/21 30 mg Tablet] Metoprolol Succinate 12.5 mg PO DAILY #30 tab.er.24h 02/01/21 Nitroglycerin [Nitrostat 0.4 mg Sl 0.4 mg SL Q5M PRN #1 bottle 02/01/21 Tablet] Pantoprazole Sodium [Protonix 20 20 mg PO DAILY #30 tablet.dr 02/01/21 mg Tablet] Allergies Allergy/AdvReac Type Severity Reaction Status Date / Time No Known Allergies Allergy Verified 05/05/20 23:34 Review of System - Constitutional Constitutional: Present: Well developed, Well nourished, Non-toxic - Nose,Throat,Mouth Nose (ROS): Absent: pain Throat: Absent: pain, swelling, discharge Mouth: Absent: pain, swelling - Respiratory Respiratory: Absent: cough, short of breath, wheezing - CV Cardiology: Absent: chest pain, edema - GI Gastrointestinal/Abdominal: Absent: abdominal pain, diarrhea, nausea, vomiting - Genitourinary Symptoms: Absent: dysuria - Neuro Neurological: Absent: headache, weakness - Muskuloskeletal Musculoskeletal: Present: other (R ankle pain and swelling). Absent: back pain,joint pain, joint swelling - Integumentary Skin: Absent: lesions, rash - Allergic/Immunologic Immunological/Allergic: Present: no symptoms reported - Hematologic Hematologic/Lymphatic: Absent: easy bleeding, easy bruising, swollen glands - Endocrine Endocrine: Present: no symptoms reported - Psychiatric Psychiatric: Present: Normal Affect, Normal Mood. Absent: Depressed - All Others/Exceptions All Other Systems: Reviewed and Negative Except Where Noted in Documentation ED PMH/Social HX/Family HX - Respiratory Hx Respiratory Disorders: No - Cardiovascular Hx Cardiac Disorders: No - Neurological Hx Neurological Disorder: No - Endocrine Hx Endocrine Disorders: No - Gastrointestinal Hx Gastrointestinal Disorders: No - Genitourinary Hx Genitourinary Disorders: No - Musculoskeletal Hx Musculoskeletal Disorders: No - Reproductive Hx Reproductive Disorders: No - Psychological Hx Psychosocial Problems: No - HEENT Hx Ear, Nose Throat Disorders: No - Cancer Hx Cancer: No - Social History Highest Educational Level: High School Able to Read: Yes Able to Write: Yes Smoking Status: Heavy Smoker (>10 cig/day) Hx Chewing Tobacco Use: No Alcohol Use: Occasionally Any recreational drug use reported?: No Feels Threatened In Home Environment: No Feels Threatened In a Relationship: No - Family PMH Father Family History is Unknown Due To: Negative for premature coronary artery disease Living Status: Still Living Respiratory: Respiratory Disorder(s), Asthma - Mccone-Suicide Severity Rating Scale 1) Wish to be :: No 2) Suicidal Thoughts:: No 6) Suicidal Behavior Question (A): LIFETIME: No 6) Suicidal Behavior Question (B): PAST 3 MONTHS: No General Exam - General Limitations: Complains of: no limitations Constitutional: Present: Well developed, Well nourished, well hydrated, Non-toxic - Head Head exam: Present: atraumatic, normocephalic, normal inspection - Eye Eye exam: Present: normal apperance, normal accomodation, EOMI Pupils: Present: PERRL - ENT ENT exam: Present: normal orophraynx, mucous membranes moist, TMs clear w/ good light reflex, normal external ear exam, No Nasal Discharge, Posterior Pharynx Non-erethemetous - Expanded ENT Exam Ear exam: Present: normal external inspection Mouth exam: Present: normal external inspection Teeth exam: Present: normal inspection Throat exam: normal inspection - Neck Neck exam: Present: full ROM, Supple. Absent: tenderness, meningismus, Posterior Lymphadenopathy, Anterior Lymphadenopathy - Respiratory Respiratory exam: Present: lungs clear and equal bilaterally. Absent: respiratory distress, wheezes, rales, rhonchi, accessory muscle use - Cardiovascular Cardiovascular Exam: Present: regular rate, normal rhythm, normal heart sounds. Absent: murmur, rubs, gallop, clicks - GI/Abdominal GI/Abdominal exam: Present: soft, non tender, normal bowel sounds. Absent: guarding, rebound, rigid, mass, bruit - Extremities Exam Extremities exam: Present: normal inspection, neurovascularly intact, full ROM, other (+Tenderness, swelling noted to R lateral ankle. 2+ R DP pulse.) - Back Exam Back exam: Present: normal inspection, full ROM. Absent: tenderness - Neurological Exam Neurological exam: Present: alert, oriented X3, CN II-XII intact - Expanded Neurological Exam Patient oriented to: Present: person, place, time Speech: Present: fluid speech - Psychiatric Psychiatric exam: Present: normal affect, normal mood - Skin Skin Color: Present: Normal, [place] Skin exam: Present: warm, dry - Expanded Skin Exam Type of lesion: Absent: rash - Vital Signs Vital Signs 01/28/23 12:46 Temperature 98.7 F Pulse Rate [ 103 H Left Pulse Ox] Respiratory 18 Rate Blood Pressure 134/67 [Left Arm] O2 Sat by Pulse 96 Oximetry(%) Medical Desicion Making - Lab Data Orders: Labs 01/28/23 13:16 Ankle [RIGHT ANKLE MIN 3V] [DIAG] Stat Oxycodone HCl/Acetaminophen [Percocet 5-325 mg Tablet] 1 tab PO ONE ONE - Medical Decision Making 32 yo male presents to the ED with R ankle pain and swelling. Pt is afebrile, hemodynamically stable. Pt given PO percocet in the ED. XR of ankle shows medial malleolus fx. Pt educated about ankle fxs. Pt placed in a splint. Pt educated about ankle fxs. Pt given prescription for percocet, ortho referral placed. Pt will f/u with ortho. ED Discharge Summary - Discharge Data Clinical Impression: Ankle fracture Condition: Good Disposition: 01 HOME / SELF CARE Referrals: BHARATHI MEDINA MD [MEDICAL DOCTOR] - Home Medications: Ambulatory Orders Medication Instructions Recorded Aspirin [Aspirin 81 mg Chew Tablet] 81 mg PO DAILY tablet 02/01/21 Colchicine [Colchicine 0.6 mg 0.6 mg PO DAILY #30 tablet 02/01/21 Tablet] Isosorbide Mononitrate ER [Imdur 30 mg PO DAILY #30 tab.sr.24h 02/01/21 30 mg Tablet] Metoprolol Succinate 12.5 mg PO DAILY #30 tab.er.24h 02/01/21 Nitroglycerin [Nitrostat 0.4 mg Sl 0.4 mg SL Q5M PRN #1 bottle 02/01/21 Tablet] Pantoprazole Sodium [Protonix 20 20 mg PO DAILY #30 tablet.dr 02/01/21 mg Tablet] Time Seen by Provider: 01/28/23 12:53 Electronically Generated By:TADEO MCGEE MD Generated Date/Time: 01/28/23 1317 Electronically Signed By: TADEO MCGEE MD Signed Date/Time 01/28/23 1330 Co Signed Electronically By: Co Signed Date/Time: CC: MADAY MCCOY MD [facility] Work Phone: Evaluation note Note Date & Type Note Facility Evaluation note No Assessments Information Avail able [facility] Work Phone: Evaluation note Note Date & Type Note Facility Evaluation note No assessment information availa ble [facility] Work Phone: Hospital course Narrative Note Date & Type Note Facility Hospital course Narrative No data available for this section [facility] Summary Purpose Family History No Family History Records Found Relationship Condition Age at Onset Recorded Date/T joya Father Respiratory? Respira tory Disorder(s), Asthma Unknown January 31, 2021 11:05am Relationship Condition Age at Onset Recorded Date/T joya Father Respiratory?Respirat ory Disorder(s), Asthma Unknown January 28, 2023 1:30pm Advance Directives No Advanced Directives Records Found Advance Directive Response Recorded Date/ Time Advance Directives No January 30 5:41pm Advance Directives Information Provided No January 30, 2021 5:41pm Advanced Directive on File No January 30, 2021 5:41pm Advance Directive Response Recorded Date/ Time Advance Directives No January 12:46pm Advance Directives Information Provided No January 28, 2023 12:46pm Advanced Directive on File No 2022 12:46pm Chief Complaint and Reason for Visit Chief Complaint R07.9 CHEST PAIN R06 .02 SOB Additional Source Comments (unrecognized sect ion and content) No Status Records FoundNo Status Records FoundNo Status Records FoundNo Status Records Found INFORMATION SOURCE (unrecogn ized section and content) DATE CREATED AUTHOR 09/05/2019 [facility] DATE CREATED AUTHOR AUTHOR'S ORGANIZ ATION 05/23/2024 [facility] ([place]) DATE CREATED AUTHOR AUTHOR'S ORGANIZ ATION 01/22/2025 [facility] DATE CREATED AUTHOR AUTHOR'S ORGANIZ ATION 04/05/2025 [facility] Care Teams (unrecognized sec tion and content) Team Status: Active Member Role Status Dates MADAY MCCOY MD Primary Care Provider Active Start: January 28, 2023 TADEO MCGEE MD Emergency Provider Active Start: January 28, 2023 ONE NO next of kin Active JEM MAK Guarantor Active Goals (unrecognized section and content) Goals may be documented in a n alternate section No data available for this section FOR RECORDS PERTAINING TO PATIENTS WHO ARE OR HAVE BEEN ENROLLED IN A CHEMICAL DEPENDENCY/SUBSTANCEABUSE PROGRAM, SOME INFORMATION MAY BE OMITTED. This clinical summary was aggregated from multiple sources. Caution should be exercised in using it in the provision of clinical care. This summary normalizes information from multiple sources, and as a consequence, information in this document may materially change the coding, format and clinical context of patient data. In addition, data may be omitted in some cases. CLINICAL DECISIONS SHOULD BE BASED ON THE PRIMARY CLINICAL RECORDS. [facility] [employer] [facility]. provides no warranty or guarantee of the accuracy or completeness of information in this document.
--- NOTE | 2025-07-24 14:24 | EKG12_ITS ---
Test Reason : CP Blood Pressure : */* mmHG Vent. Rate : 87 BPM Atrial Rate : 87 BPM P-R Int : 148 ms QRS Dur : 84 ms QT Int : 336 ms P-R-T Axes : 55 45 21 degrees QTcB Int : 404 ms Normal sinus rhythm Normal ECG Confirmed by AGUILA VIEIRA, KILEY ([id number]), photo editor PAYAL CRUZ ([id number]) on 07/25/2025 1:07:02 PM Referred By: BB Confirmed By: KILEY SHEEHAN MD
--- NOTE | 2025-07-24 14:24 | CT_ITS ---
PROCEDURE: CHEST WITHOUT CONTRAST 07/24/2025 REASON FOR EXAM: LEFT RIB PAIN TECHNIQUE: Chest CT without contrast. Coronal and Sagittal reconstruction series were provided. One or more dose reduction techniques were used (e.g., Automated exposure control, adjustment of the mA and/or kV according to patient size, use of iterative reconstruction technique RADIATION DOSE SUMMARY: CTDlvol: 9.38 mGy DLP: 391.34 mGycm COMPARISON: None FINDINGS: Lung windows show the lungs to be normally expanded. No superimposed acute pulmonary process. No suspicious noncalcified mass or nodule Soft tissue windows show a normal-appearing thyroid gland. No suspicious adenopathy. No calcified coronary vessels. Limited cuts through the upper abdomen do not show a suspicious abnormality. Bony structures are normal CT/Chest without Contrast IMPRESSION: Coronary artery calcification (CAC) is is absent No acute pulmonary process Reading Location: [id number]
[2025-07-24 14:30] VITALS: BP 117/84; PULSE 85; RESP 16; O2SAT 100
[2025-07-24] MEDS: 0.9% Normal Saline (1000mL) 1,000 ML 999 ML IV (14:36)
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
[2025-07-24 14:40] VITALS: BP 117/84; PULSE 83; RESP 15; O2SAT 99
[2025-07-24 14:43] LABS: Hematocrit 45.3 % (40-54); Hemoglobin 15.7 g/dL (13.0-16.5); Immature Granulocytes Count 0.030 X10^3/uL (0.0-0.0); Mean Corp Hgb Conc 34.7 g/dL (32-36); Mean Corpuscular Volume 90.6 fL (80-94); Mean Platelet Vol. 10.8 fl (6.2-12.0); NRBC Flagged by Analyzer 0 % (0-5); Platelet Count 280 K/mm3 (150-450); RBC Distribution Width CV 12.9 % (11.6-14.6); RBC Distribution Width SD 42.3 fl (35.1-43.9); Red Blood Count 5.00 M/mm3 (4.6-6.2); White Blood Count 9.6 K/mm3 (4.4-11.0)
[2025-07-24 14:45] VITALS: BP 138/99; PULSE 106; RESP 23; O2SAT 99
[2025-07-24 14:54] LABS: Prothrombin Time (Protime)PT. 12.5 SECONDS (11.7-14.9)
[2025-07-24 14:55] LABS: Partial Thromboplast Time 24.3 Seconds (24.1-36.2)
[2025-07-24 15:26] LABS: Anion Gap 13 (5-15); BUN 12 mg/dL (4-19); BUN/Creat Ratio 14.9 RATIO (10-20); Calcium,Total 9.4 mg/dL (7.6-11.0); Carbon Dioxide 25.9 mmol/L (21.0-32.0); Chloride 100 mmol/L (98-108); Estimated Creatinine Clearance 117.79 ml/min (50-250); Glucose 100 mg/dL (70-99); Potassium 3.9 mmol/L (3.3-5.1); Troponin T High Sensitivity < 6 ng/L (<=22)
[2025-07-24 15:45] VITALS: BP 138/99; PULSE 106; RESP 23; TEMP 37; O2SAT 99
== END 2025-07-24 15:49 | disposition home or self-care (01) ==
PROVIDERS: Emergency Provider Emergency Medicine; PCP Nurse Practitioner Family; Visit Provider Emergency Medicine
DX: R07.9 Chest pain, unspecified (principal); J44.9 Chronic obstructive pulmonary disease, unspecified; I10 Essential (primary) hypertension; F41.9 Anxiety disorder, unspecified; F17.210 Nicotine dependence, cigarettes, uncomplicated; Z79.899 Other long term (current) drug therapy
CPT/HCPCS: 71250; 80048; 84484; 85025; 85610; 85730; 93005; 96361; 96374; 96375; 99284; A4216; J2405

== ENCOUNTER 2025-11-25 18:47 | Emergency (ER) | payer MEDICAID, SELFPAY ==
[2025-11-25 18:47] VITALS: BP 144/88; PULSE 83; RESP 20; TEMP 36.1; O2SAT 98; BMI 30.1
--- NOTE | 2025-11-25 18:51 | RAD_ITS ---
PROCEDURE: HAND MIN 3 VIEWS 11/25/2025 REASON FOR EXAM: CRUSH INJURY, DIGIT #2 TECHNIQUE: Procedure Code: JOAQUIN Modality: DX Procedure: HAND MIN 3 VIEWS COMPARISON: None. FINDINGS: No acute bony abnormalities. No dislocation. No soft tissue abnormalities. RAD/Hand Min 3 Views IMPRESSION: No acute osseous abnormalities. Reading Location: [id number]
--- NOTE | 2025-11-25 19:57 | EDS_ITS ---
HPI History of Present Illness Chief Complaint: Laceration [facility] Medical History Tobacco use Mild chronic obstructive pulmonary disease Small airways disease Hypertension Anxiety Chest pain Home Medications ?Medication ?Instructions ?Recorded ?Last Taken ?Type nitroglycerin 0.3 mg sublingual 0.3 mg sublingual Q5-1 5M PRN chest 04/27/25 Unknown History tablet pain paroxetine HCl 10 mg tablet (Paxil) 10 mg PO QDAY 04/01 07/25 Unknown History cholecalciferol (vitamin D3) 1,250 1,250 mcg PO QWEEK 07/24/25 Unknown History mcg (50,000 unit) capsule cephalexin 500 mg capsule 500 mg PO TID 5 days #15 cap s 11/25/25 Unknown Rx Allergy/AdvReac Type Severity Reaction Status Date / Time venom-honey bee (bee venom AdvReac Swelling Verified 11/25/25 18:48 (honey bee)) Family History Father Asthma Surgical History History of ankle surgery Social History Smoking Status: Current every day smoker tobacco type: cigarettes EXAM Physical Exam Const Vital Signs: 11/25/25 18:47 11/25/25 21:22 Temperature 97 F L 98 F Temperature Source Temporal Pulse Rate 83 85 Respiratory Rate 20 H 18 Blood Pressure 144/88 H 144/88 H Blood Pressure Mean 106 106 Pulse Ox 98 100 Oxygen Delivery Method Room Air [facility] [place]arr[place] Medical decision making narrative: HISTORY OF PRESENT ILLNESS: Chief complaint: Finger injury 35-year-old male history of COPD, tobacco abuse, hypertension, anxiety presents with finger injury. He states he suffered a crush injury right index finger. Notes he was working with heavy equipment related to a car when the equipment fell onto his finger causing crush injury. Unknown tetanus. REVIEW OF SYSTEMS: Pertinent positives: Right index finger injury Pertinent negatives: Numbness tingling or loss of sensation PHYSICAL EXAM: Nursing triage notes reviewed, Vital signs reviewed Constitutional: please see mdm Extremities: No edema, intact tenderness function. Intact flexor digitorum profundus and superficialis tendons Neuro: No intact 5/5 strength with ok sign (median), intact finger abduction (ulnar) intact wrist extension (radial n). Intact sensation in the radial, ulnar, and median nerve distributions. Skin: 2 cm linear laceration noted to the middle on the palmar surface phalanx of the second digit of the right hand MEDICAL DECISION MAKING: Chief Complaint: please see HPI MDM Narrative: Patient was initially hemodynamically stable, afebrile and nontoxic-appearing. Exam consistent with finger laceration. ALL IMAGES (IF OBTAINED) HAVE BEEN PERSONALLY REVIEWED AND INTERPRETED BY MYSELF. X-ray was read reviewed personally so show evidence of obvious fracture dislocation. Radiologist agreed my interpretation Procedure: Laceration repair. The procedure was performed by myself. Indication: Wound repair Risks and benefits: risks, benefits and alternatives were discussed Consent: Consent was obtained. Wound Details: Approximately 2 cm linear laceration approximately 1 mm in depth, no foreign bodies or tendon involvement noted Anesthesia: Topical let, digital block 1% lidocaine without epinephrine Wound prep: Patient was prepped and draped in the usual sterile fashion. Tetanus: Updated today Irrigation Solution: Saline Wound Preparation: Irrigated with chlorhexidine and water. Soak for approximate 15 minutes in chlorhexidine and water The wound was explored to its base in a bloodless field. Procedure Description: Placed 5, 4-0 Chromic Gut sutures with close approximation. Patient tolerated the procedure well with no immediate complications The patient and/or family, caregivers express understanding. The patient and/or family, caregivers agrees with the plan. Shared decision making: I will have a discussion with the patient and or visitors regarding risk/benefits of further testing or admission. They will be made aware of of the risk/benefits inherent in this decision they will be given the opportunity to voice understanding. Total critical care time today provided was at least 0 minutes. This excludes separately billable procedures. Critical care time (if documented) is secondary to the patient having high probability of clinically significant/life threatening deterioration in the patient's condition which required my urgent intervention. Impression: 1. Right second digit contusion 2. Right second toe laceration Dispo: Discharge home This note was generated with Kaboodle dictation software. It may contain incorrect words, spelling, and punctuation that were not noted in review of the chart prior to signing. Radiography Diagnostic Testing: Clinical Impression(s) from Imaging Studies Hand X-Ray 11/25/25 18:51 IMPRESSION: No acute osseous abnormalities. Reading Location: [facility] Discharge Plan Triage Chief Complaint: Laceration ED Provider: James Joshua Dx/Rx/DC Orders Instructions: ED Hand Laceration- All Closures Prescriptions: New cephalexin 500 mg capsule 500 mg PO TID 5 Days Qty: 15 0RF No Action nitroglycerin 0.3 mg tablet, sublingual 0.3 mg sublingual Q5-15M PRN (Reason: chest pain) Rx Instructions: do not exceed 3 doses per episode paroxetine HCl [Paxil] 10 mg tablet 10 mg PO QDAY cholecalciferol (vitamin D3) 1,250 mcg (50,000 unit) capsule 1,250 mcg PO QWEEK Primary Care Provider: Care Physician,No Primary Referrals: Artemio Nolan MD [Med Staff - Active Staff, Family Practice] Activity Restrictions/Additional Instructions: Thank you for trusting us with your care today! The x-ray of your finger did not show signs of broken bone. Your laceration was repaired with absorbable sutures. You would not need to return to get them removed. Please keep your wound clean and dry. Recommend peroxide and Neosporin for the first 3 days. After first 3 days soap and water should be fine for daily cleansing Please keep your wound covered. Please take Tylenol (2 pills, 650 mg), ibuprofen (2 pills, 400 mg) every 6 hours as needed for pain and fever control. Please return to the emergency department if your symptoms change or worsen. Please follow with your primary care physician for further outpatient evaluation and management. Print Language: Mohawk Disposition Disposition: Home, Self Care Discharge Date/Time: 11/25/25 21:29
--- OUTSIDE RECORDS SUMMARY | 2025-11-25 20:23 | XMS RPT_ITS | CCD ---
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 measurement (m ass/volume)Ordered By: Danny Duran on 07-24-2025 Glucose [Mass/Vol] 100 mg/dL High 70-99 [facility] Serum or plasma calcium dorina urement (mass/volume)Ordered By: Danny Duran on 07-24-2025 Calcium [Mass/Vol] 9.4 mg/dL 7.6-11.0 [facility] Serum or plasma urea nitroge n measurement (mass/volume)Ordered By: Danny Duran on 07-24-2025 Urea nitrogen [Mass/Vol] 12 mg/dL 4-19 [facility] Sodium levelOrdered By: Aruna Duran on 07-24-2025 Sodium [Moles/Vol] 139 mmol/L 133-145 [facility] Troponin T HS 2 HRon 025 Trop T High Sen Normal <=22 [facility] Comment on above: Result Comment: Lanie bergman via OM: Ordered Performed By: #### L 506.1001, L501.9520, L500.4050, L506.0200, L100.0100, L500.4100, L503.0106, L501.9985, L501.5200 #### [facility] [address] [place], [address] Troponin T HS 4 HRon 025 Trop T High Sen Normal <=22 [facility] Comment on above: Result Comment: Lanie bergman via OM: Ordered Performed By: #### L 506.1001, L501.9520, L500.4050, L506.0200, L100.0100, L500.4100, L503.0106, L501.9985, L501.5200 #### [facility] [address] [place], [address] Troponin T.cardiac [Mass/vol ume] in Serum or Plasma by High sensitivity methodOrdered By: Danny Duran on 07-24-2025 Troponin T.cardiac High sensitivity method [Mass/Vol] < 6 ng/L <22 [facility] White blood cell (WBC) count Ordered By: Danny Duran on 07-24-2025 WBC (Bld) [#/Vol] 9.6 10*3/uL 4.4-11.0 [facility] Absolute lymphocyte countOrd ered By: Nadiya Melendez on 03-31-2025 Lymphocytes Auto (Unsp spec) [#/Vol] 1.94 10*3/uL 0.83-4.51 [facility] Absolute neutrophil countOrd ered By: Nadiya Melendez on 03-31-2025 Neutrophils (Bld) [#/Vol] 8.3 10*3/uL High 2.0-7.7 [facility] Anion gap in Serum or Plasma Ordered By: Nadiya Melendez on 03-31-2025 Anion gap [Moles/Vol] 10 mmol/L 5-15 [facility] Automated lymphocyte count a s percentage of total leukocytesOrdered By: Nadiya Melendez on 03-31-2025 Lymphocytes/100 WBC Auto (Unsp spec) 17.0 % Low 19-41 [facility] BUN/creatinine ratioOrdered By: Nadiya Melendez on 03-31-2025 Urea nitrogen/Creatinine [Mass ratio] 19.1 mg/mg 10-20 [facility] Basophil percentageOrdered B y: Nadiya Melendez on 03-31-2025 Basophils/100 WBC (Bld) 0.3 % 0-1 [facility] Bilirubin, totalOrdered By: Nadiya Melendez on 03-31-2025 Bilirubin [Mass/Vol] 0.81 mg/dL 0.00-1.30 [facility] CBC W/Diff, Automatedon Absolute Lymph 1.94 X10 3/uL Normal 0.83-4.51 [facility] Comment on above: Performed By: #### L 506.1001, L501.9520, L500.4050, L506.0200, L100.0100, L500.4100, L503.0106, L501.9985, L501.5200 #### [facility] [address] [place], [address] ([address] Absolute Neut 8.3 X10 3/uL High 2.0-7.7 [facility] Comment on above: Performed By: #### L 506.1001, L501.9520, L500.4050, L506.0200, L100.0100, L500.4100, L503.0106, L501.9985, L501.5200 #### [facility] [address] [place], [address] Basophils/100 WBC (Bld) 0.3 % Normal 0-1 [facility] Comment on above: Performed By: #### L 506.1001, L501.9520, L500.4050, L506.0200, L100.0100, L500.4100, L503.0106, L501.9985, L501.5200 #### [facility] [address] [place], [address] Eosinophils/100 WBC (Bld) 2.9 % Normal 0-5 [facility] Comment on above: Performed By: #### L 506.1001, L501.9520, L500.4050, L506.0200, L100.0100, L500.4100, L503.0106, L501.9985, L501.5200 #### [facility] [address] [place], [address] Erythrocyte distribution width (RBC) [Ratio] 12.7 % Normal 11.6-14.6 [facility] Comment on above: Performed By: #### L 506.1001, L501.9520, L500.4050, L506.0200, L100.0100, L500.4100, L503.0106, L501.9985, L501.5200 #### [facility] [address] [place], [place], [id number] (858) Hematocrit (Bld) [Volume fraction] 44.1 % Normal 40-54 [facility] Comment on above: Performed By: #### L 506.1001, L501.9520, L500.4050, L506.0200, L100.0100, L500.4100, L503.0106, L501.9985, L501.5200 #### [facility] [address] [place], [place], [id number] (722) Hemoglobin (Bld) [Mass/Vol] 15.3 g/dL Normal 13.0-16.5 [facility] Comment on above: Performed By: #### L 506.1001, L501.9520, L500.4050, L506.0200, L100.0100, L500.4100, L503.0106, L501.9985, L501.5200 #### [facility] [address] [place], [address] IG% 0.300 Normal 0.0-0.9 [facility] Comment on above: Result Comment: IG% - Immature Granulocytes (promyelocytes, myelocytes and metamyelocytes) > 1% indicates that a LEFT SHIFT is Present. Performed By: #### L 506.1001, L501.9520, L500.4050, L506.0200, L100.0100, L500.4100, L503.0106, L501.9985, L501.5200 #### [facility] [address] [place], [address] Lymphocytes/100 WBC (Bld) 17.0 % Low 19-41 [facility] Comment on above: Performed By: #### L 506.1001, L501.9520, L500.4050, L506.0200, L100.0100, L500.4100, L503.0106, L501.9985, L501.5200 #### [facility] [address] [place], [address] MCH (RBC) [Entitic mass] 31.0 pg Normal 27.0-32.0 [facility] Comment on above: Performed By: #### L 506.1001, L501.9520, L500.4050, L506.0200, L100.0100, L500.4100, L503.0106, L501.9985, L501.5200 #### [facility] [address] [place], [address] MCHC (RBC) [Mass/Vol] 34.7 g/dL Normal 32-36 [facility] Comment on above: Performed By: #### L 506.1001, L501.9520, L500.4050, L506.0200, L100.0100, L500.4100, L503.0106, L501.9985, L501.5200 #### [facility] [address] [place], [address] MCV (RBC) [Entitic vol] 89.5 fL Normal 80-94 [facility] Comment on above: Performed By: #### L 506.1001, L501.9520, L500.4050, L506.0200, L100.0100, L500.4100, L503.0106, L501.9985, L501.5200 #### [facility] [address] [place], [address] Monocytes/100 WBC (Bld) 6.6 % Normal 0-10 [facility] Comment on above: Performed By: #### L 506.1001, L501.9520, L500.4050, L506.0200, L100.0100, L500.4100, L503.0106, L501.9985, L501.5200 #### [facility] [address] [place], [address] Neutrophils/100 WBC (Bld) 72.9 % High 47-70 [facility] Comment on above: Performed By: #### L 506.1001, L501.9520, L500.4050, L506.0200, L100.0100, L500.4100, L503.0106, L501.9985, L501.5200 #### [facility] [address] [place], [address] Nucleated RBC (Bld) [#/Vol] 0 10*3/uL Normal 0-5 [facility] Comment on above: Performed By: #### L 506.1001, L501.9520, L500.4050, L506.0200, L100.0100, L500.4100, L503.0106, L501.9985, L501.5200 #### [facility] [address] [place], [address] Platelet mean volume (Bld) [Entitic vol] 10.0 fL Normal 6.2-12.0 [facility] Comment on above: Performed By: #### L 506.1001, L501.9520, L500.4050, L506.0200, L100.0100, L500.4100, L503.0106, L501.9985, L501.5200 #### [facility] [address] [place], [address] Platelets (Bld) [#/Vol] 241 10*3/uL Normal 150-450 [facility] Comment on above: Performed By: #### L 506.1001, L501.9520, L500.4050, L506.0200, L100.0100, L500.4100, L503.0106, L501.9985, L501.5200 #### [facility] [address] [place], [place], [id number] (255) RBC (Bld) [#/Vol] 4.93 10*6/uL Normal 4.6-6.2 [facility] Comment on above: Performed By: #### L 506.1001, L501.9520, L500.4050, L506.0200, L100.0100, L500.4100, L503.0106, L501.9985, L501.5200 #### [facility] [address] [place], [place], [phone] (417) RDW SD 41.4 fl Normal 35.1-43.9 [facility] Comment on above: Performed By: #### L 506.1001, L501.9520, L500.4050, L506.0200, L100.0100, L500.4100, L503.0106, L501.9985, L501.5200 #### [facility] [address] [place], [place], [phone] (843) WBC (Bld) [#/Vol] 11.4 10*3/uL High 4.4-11.0 [facility] Comment on above: Performed By: #### L 506.1001, L501.9520, L500.4050, L506.0200, L100.0100, L500.4100, L503.0106, L501.9985, L501.5200 #### [facility] [address] [place], [address] Calculated very low density lipoprotein (VLDL) cholesterol measurementOrdered By: Nadiya Melendez on 03-31-2025 Calculated very low density lipoprotein (VLDL) cholesterol measurement 14 mg/dL 5-40 [facility] Carbon dioxide, total [Moles /volume] in Central venous bloodOrdered By: Nadiya Melendez on 03-31-2025 CO2 [Moles/Vol] 26.4 mmol/L 21.0-32.0 [facility] Chloride assayOrdered By: Estella Melendez on 03-31-2025 Chloride [Moles/Vol] 101 mmol/L 98-108 [facility] Comprehensive Metabolic Prof ilon 03-31-2025 Albumin [Mass/Vol] 4.3 g/dL Normal 3.5-5.0 [facility] Comment on above: Performed By: #### L 506.1001, L501.9520, L500.4050, L506.0200, L100.0100, L500.4100, L503.0106, L501.9985, L501.5200 #### [facility] [address] [place], [place], [phone] (608) Albumin/Globulin [Mass ratio] 1.5 {ratio} Normal 0.9-2.4 [facility] Comment on above: Performed By: #### L 506.1001, L501.9520, L500.4050, L506.0200, L100.0100, L500.4100, L503.0106, L501.9985, L501.5200 #### [facility] [address] [place], [address] ALK PHOS 94 U/L Normal 40-129 [facility] Comment on above: Performed By: #### L 506.1001, L501.9520, L500.4050, L506.0200, L100.0100, L500.4100, L503.0106, L501.9985, L501.5200 #### [facility] [address] [place], [place], [id number] ALT [Catalytic activity/Vol] 35 U/L Normal <=46 [facility] Comment on above: Performed By: #### L 506.1001, L501.9520, L500.4050, L506.0200, L100.0100, L500.4100, L503.0106, L501.9985, L501.5200 #### [facility] [address] [place], [address] AST [Catalytic activity/Vol] 21 U/L Normal <=37 [facility] Comment on above: Performed By: #### L 506.1001, L501.9520, L500.4050, L506.0200, L100.0100, L500.4100, L503.0106, L501.9985, L501.5200 #### [facility] [address] [place], [address] Bilirubin [Mass/Vol] 0.81 mg/dL Normal 0.00-1.30 [facility] Comment on above: Performed By: #### L 506.1001, L501.9520, L500.4050, L506.0200, L100.0100, L500.4100, L503.0106, L501.9985, L501.5200 #### [facility] [address] [place], [address] BUN/CRE 19.1 RATIO Normal 10-20 [facility] Comment on above: Performed By: #### L 506.1001, L501.9520, L500.4050, L506.0200, L100.0100, L500.4100, L503.0106, L501.9985, L501.5200 #### [facility] [address] [place], [address] Calcium [Mass/Vol] 9.1 mg/dL Normal 7.6-11.0 [facility] Comment on above: Performed By: #### L 506.1001, L501.9520, L500.4050, L506.0200, L100.0100, L500.4100, L503.0106, L501.9985, L501.5200 #### [facility] [address] [place], [address] Chloride [Moles/Vol] 101 mmol/L Normal 98-108 [facility] Comment on above: Performed By: #### L 506.1001, L501.9520, L500.4050, L506.0200, L100.0100, L500.4100, L503.0106, L501.9985, L501.5200 #### [facility] [address] [place], [address] CO2 [Moles/Vol] 26.4 mmol/L Normal 21.0-32.0 [facility] Comment on above: Performed By: #### L 506.1001, L501.9520, L500.4050, L506.0200, L100.0100, L500.4100, L503.0106, L501.9985, L501.5200 #### [facility] [address] [place], [place], [id number] Creatinine [Mass/Vol] 0.74 mg/dL Normal 0.70-1.20 [facility] Comment on above: Performed By: #### L 506.1001, L501.9520, L500.4050, L506.0200, L100.0100, L500.4100, L503.0106, L501.9985, L501.5200 #### [facility] [address] [place], [address] GAP 10 Normal 5-15 [facility] Comment on above: Performed By: #### L 506.1001, L501.9520, L500.4050, L506.0200, L100.0100, L500.4100, L503.0106, L501.9985, L501.5200 #### [facility] [address] [place], [address] GFR/1.73 sq M.predicted among non-blacks MDRD (S/P/Bld) [Vol rate/Area] 120 mL/min/{1.73_m2} Normal >60 [facility] Comment on above: Result Comment: mL/m in/1.73m2 CKD-EPI Creatinine Equation (2020) Performed By: #### L 506.1001, L501.9520, L500.4050, L506.0200, L100.0100, L500.4100, L503.0106, L501.9985, L501.5200 #### [facility] [address] [place], [address] Globulin (S) [Mass/Vol] 2.9 g/dL Normal 2.2-4.2 [facility] Comment on above: Performed By: #### L 506.1001, L501.9520, L500.4050, L506.0200, L100.0100, L500.4100, L503.0106, L501.9985, L501.5200 #### [facility] [address] [place], [address] Glucose [Mass/Vol] 91 mg/dL Normal 70-99 [facility] Comment on above: Performed By: #### L 506.1001, L501.9520, L500.4050, L506.0200, L100.0100, L500.4100, L503.0106, L501.9985, L501.5200 #### [facility] [address] [place], [address] Potassium [Moles/Vol] 4.1 mmol/L Normal 3.3-5.1 [facility] Comment on above: Performed By: #### L 506.1001, L501.9520, L500.4050, L506.0200, L100.0100, L500.4100, L503.0106, L501.9985, L501.5200 #### [facility] [address] [place], [address] Sodium [Moles/Vol] 138 mmol/L Normal 133-145 [facility] Comment on above: Performed By: #### L 506.1001, L501.9520, L500.4050, L506.0200, L100.0100, L500.4100, L503.0106, L501.9985, L501.5200 #### [facility] [address] [place], [address] T PROT 7.2 g/dL Normal 5.9-8.4 [facility] Comment on above: Performed By: #### L 506.1001, L501.9520, L500.4050, L506.0200, L100.0100, L500.4100, L503.0106, L501.9985, L501.5200 #### [facility] [address] [place], [address] Urea nitrogen [Mass/Vol] 14 mg/dL Normal 4-19 [facility] Comment on above: Performed By: #### L 506.1001, L501.9520, L500.4050, L506.0200, L100.0100, L500.4100, L503.0106, L501.9985, L501.5200 #### [facility] [address] [place], [address] Eosinophil percentageOrdered By: Nadiya Melendez on 03-31-2025 Eosinophils/100 WBC (Bld) 2.9 % 0-5 [facility] Erythrocyte distribution wid th ratioOrdered By: Nadiya Melendez on 03-31-2025 Erythrocyte distribution width (RBC) [Ratio] 12.7 % 11.6-14.6 [facility] Erythrocyte distribution wid th standard deviationOrdered By: Nadiya Melendez on 03-31-2025 Erythrocyte distribution width (RBC) [Ratio] 41.4 fl 35.1-43.9 [facility] Folate [Mass/volume] in Seru m or PlasmaOrdered By: Nadiya Melendez on 03-31-2025 Folate [Mass/Vol] 11.40 ng/mL 4.60-34.80 [facility] Folates,Serum (Folic Acid)on 03-31-2025 FOLATES,SERUM 11.40 ng/mL Normal 4.60-34.80 [facility] Comment on above: Order Comment: N Performed By: #### L 506.1001, L501.9520, L500.4050, L506.0200, L100.0100, L500.4100, L503.0106, L501.9985, L501.5200 #### [facility] [address] [place], [address] Glomerular filtration rate ( GFR) estimation/1.73 sq m using serum, plasma, or whole bOrdered By: Nadiya Melendez on 03-31-2025 GFR/1.73 sq M.predicted among non-blacks MDRD (S/P/Bld) [Vol rate/Area] 120 mL/min/{1.73_m2} >60 [facility] Comment on above: mL/min/1.73m2 CKD-EP I Creatinine Equation (2020) Hematocrit Auto (Bld) [Volum e fraction]Ordered By: Nadiya Melendez on 03-31-2025 Hematocrit (Bld) [Volume fraction] 44.1 % 40-54 [facility] Hemoglobin A1con 03-31-2025 HbA1c (Bld) [Mass fraction] 5.0 % Normal <=5.6 [facility] Comment on above: Result Comment: Norm al < 5.7 % Prediabetic 5.7 - 6.4 % Diabetic >or= 6.5 % Please note range changes. Performed By: #### L 506.1001, L501.9520, L500.4050, L506.0200, L100.0100, L500.4100, L503.0106, L501.9985, L501.5200 #### [facility] [address] [place], [address] Hemoglobin A1c percentageOrd ered By: Nadiya Melendez on 03-31-2025 HbA1c (Bld) [Mass fraction] 5.0 % <5.7 [facility] Comment on above: Normal < 5.7 % Predi abetic 5.7 - 6.4 % Diabetic >or= 6.5 % Please note range changes. Hemoglobin measurementOrdere d By: Nadiya Melendez on 03-31-2025 Hemoglobin (Bld) [Mass/Vol] 15.3 g/dL 13.0-16.5 [facility] Immature granulocytes/100 WB C Auto (Bld)Ordered By: Nadiyarenetta Melendez on 03-31-2025 Immature granulocytes/100 WBC (Bld) 0.300 % 0.0-0.9 [facility] Comment on above: IG% - Immature Granu locytes (promyelocytes, myelocytes and metamyelocytes) > 1% indicates that a LEFT SHIFT is Present. LDL calc ser/plasOrdered By: Nadiya Melendez on 03-31-2025 Cholesterol in LDL [Mass/Vol] 95 mg/dL [facility] Comment on above: Okdrilcufj=992-736 m g/dL & Higher Hbkm=708 mg/dL or greater Laboratory - Chemistry and C hemistry - challengeOrdered By: Nadiya Melendez on 03-31-2025 AST [Catalytic activity/Vol] 21 U/L <38 [facility] Lipid Profileon 03-31-2025 CHOL:HDL 2.73 Normal [facility] Comment on above: Performed By: #### L 506.1001, L501.9520, L500.4050, L506.0200, L100.0100, L500.4100, L503.0106, L501.9985, L501.5200 #### [facility] [address] [place], [address] Cholesterol [Mass/Vol] 172 mg/dL Normal <=200 [facility] [place] Comment on above: Result Comment: Chol esterol level, Desirable <200 mg/dL Borderline high cholesterol 200-239 mg/dL High cholesterol >=240 mg/dL Recommendations of the NCEP Adult Treatment Panel for the following risk-cutoff thresholds for the [place] population. Performed By: #### L 506.1001, L501.9520, L500.4050, L506.0200, L100.0100, L500.4100, L503.0106, L501.9985, L501.5200 #### [facility] [address] [place], [address] Cholesterol in HDL [Mass/Vol] 63 mg/dL Normal [facility] Comment on above: Result Comment: Fely onal Cholesterol Education Program (NCEP) guidelines: <40 mg/dL: Low HDL-cholesterol (major risk factor for CHD) >= 60 mg/dL: High HDL-cholesterol (negative risk factor for CHD) HDL-cholesterol is affected by a number of factors, e.g. smoking, exercise, hormones, sex and age. Performed By: #### L 506.1001, L501.9520, L500.4050, L506.0200, L100.0100, L500.4100, L503.0106, L501.9985, L501.5200 #### [facility] [address] [place], [address] Cholesterol in LDL [Mass/Vol] 95 mg/dL Normal [facility] Comment on above: Result Comment: Bord uanpmi=037-190 mg/dL Higher Doti=067 mg/dL or greater Performed By: #### L 506.1001, L501.9520, L500.4050, L506.0200, L100.0100, L500.4100, L503.0106, L501.9985, L501.5200 #### [facility] [address] [place], [address] Cholesterol in VLDL [Mass/Vol] 14 mg/dL Normal 5-40 [facility] Comment on above: Performed By: #### L 506.1001, L501.9520, L500.4050, L506.0200, L100.0100, L500.4100, L503.0106, L501.9985, L501.5200 #### [facility] [address] [place], [place], [id number] Triglyceride [Mass/Vol] 70 mg/dL Normal [facility] Comment on above: Result Comment: The drugs N-Acetylcysteine and Metamizole may falsely depress this assay. Normal range: <150 mg/dL Borderline High: 150-199 mg/dL High: 200-499 mg/dL Very High: >500 mg/dL Performed By: #### L 506.1001, L501.9520, L500.4050, L506.0200, L100.0100, L500.4100, L503.0106, L501.9985, L501.5200 #### [facility] [address] [place], [place], [id number] MCV (mean corpuscular volume ) determinationOrdered By: Nadiya Melendez on 03-31-2025 MCV (RBC) [Entitic vol] 89.5 fL 80-94 [facility] Magnesiumon 03-31-2025 Magnesium [Mass/Vol] 2.0 mg/dL Normal 1.5-2.2 [facility] Comment on above: Performed By: #### L 506.1001, L501.9520, L500.4050, L506.0200, L100.0100, L500.4100, L503.0106, L501.9985, L501.5200 #### [facility] [address] [place], [place], [id number] Magnesium measurement (mass/ volume)Ordered By: Nadiya Melendez on 03-31-2025 Magnesium (Unsp spec) [Mass/Vol] 2.0 mg/dL 1.5-2.2 [facility] Mean corpuscular hemoglobin (MCH) determinationOrdered By: Nadiya Melendez on 03-31-2025 MCH (RBC) [Entitic mass] 31.0 pg 27.0-32.0 [facility] Mean corpuscular hemoglobin concentration (MCHC) determinationOrdered By: Nadiya Melendez on 03-31-2025 MCHC (RBC) [Mass/Vol] 34.7 g/dL 32-36 [facility] Mean platelet volume determi nationOrdered By: Nadiya Melendez on 03-31-2025 Platelet mean volume (Bld) [Entitic vol] 10.0 fL 6.2-12.0 [facility] Monocyte percentageOrdered B y: Nadiya Melendez on 03-31-2025 Monocytes/100 WBC (Bld) 6.6 % 0-10 [facility] Neutrophil percentageOrdered By: Nadiya Melendez on 03-31-2025 Neutrophils/100 WBC (Bld) 72.9 % High 47-70 [facility] Nucleated red blood cell per centageOrdered By: Nadiya Melendez on 03-31-2025 Nucleated RBC/100 WBC (Bld) [Ratio] 0 % 0-5 [facility] Platelet countOrdered By: Estella Melendez on 03-31-2025 Platelets (Bld) [#/Vol] 241 10*3/uL 150-450 [facility] Potassium measurement (mass/ volume)Ordered By: Nadiya Melendez on 03-31-2025 Potassium (Unsp spec) [Mass/Vol] 4.1 mmol/L 3.3-5.1 [facility] RBC Auto (Bld) [#/Vol]Ordere d By: Nadiya Melendez on 03-31-2025 RBC (Bld) [#/Vol] 4.93 10*6/uL 4.6-6.2 [facility] Screening total cholesterol/ high density lipoprotein (HDL) cholesterol ratioOrdered By: Nadiya Melendez on 03-31-2025 Cholesterol.total/Cholest nia in HDL [Mass ratio] 2.73 {ratio} [facility] Serum creatinine measurement (mass/volume)Ordered By: Nadiya Melendez on 03-31-2025 Creatinine [Mass/Vol] 0.74 mg/dL 0.70-1.20 [facility] Serum globulin measurementOr dered By: Nadiya Melendez on 03-31-2025 Globulin (S) [Mass/Vol] 2.9 g/dL 2.2-4.2 [facility] Serum glucose measurement (m ass/volume)Ordered By: Nadiya Melendez on 03-31-2025 Glucose [Mass/Vol] 91 mg/dL 70-99 [facility] Serum or plasma alanine sinha otransferase (ALT) measurementOrdered By: Nadiyarenetta Melendez on 03-31-2025 ALT [Catalytic activity/Vol] 35 U/L <47 [facility] Serum or plasma albumin dorina urement (mass/volume)Ordered By: Nadiyarenetta Smith on 03-31-2025 Albumin [Mass/Vol] 4.3 g/dL 3.5-5.0 [facility] Serum or plasma albumin/glob ulin mass ratioOrdered By: [facility] on 03-31-2025 Albumin/Globulin [Mass ratio] 1.5 {ratio} 0.9-2.4 [facility] Serum or plasma alkaline myron sphatase measurementOrdered By: [facility] 03-31-2025 ALP [Catalytic activity/Vol] 94 U/L 40-129 [facility] Serum or plasma calcium dorina urement (mass/volume)Ordered By: Nadiya Melendez on 03-31-2025 Calcium [Mass/Vol] 9.1 mg/dL 7.6-11.0 [facility] Serum or plasma cholesterol in HDL measurement (mass/volume)Ordered By: Nadiyarenetta Melendez on 03-31-2025 Cholesterol in HDL [Mass/Vol] 63 mg/dL >40 [facility] Comment on above: National Cholesterol Education Program (NCEP) guidelines:<40 mg/dL: Low HDL-cholesterol (major risk factor for CHD)>= 60 mg/dL: High HDL-cholesterol (negative risk factor for CHD)HDL-cholesterol is affected by a number of factors, e.g. smoking, exercise, hormones, sex and age. Serum or plasma cholesterol measurement (mass/volume)Ordered By: Nadiyarenetta Smith on 03-31-2025 Cholesterol [Mass/Vol] 172 mg/dL <201 [facility] Comment on above: Cholesterol level, D esirable <200 mg/dLBorderline high cholesterol 200-239 mg/dLHigh cholesterol >=240 mg/dLRecommendations of the NCEP Adult Treatment Panel for the following risk-cutoff thresholds for the [place] population. Serum or plasma urea nitroge n measurement (mass/volume)Ordered By: Nadiya Melendez on 03-31-2025 Urea nitrogen [Mass/Vol] 14 mg/dL 4-19 [facility] Sodium levelOrdered By: Ivette Melendez on 03-31-2025 Sodium [Moles/Vol] 138 mmol/L 133-145 [facility] TSH DL <= 0.005 mIU/L QnOrde red By: Nadiya Melendez on 03-31-2025 TSH Qn 1.190 uIU/mL 0.300-4.200 [facility] Thyroid Stim Hormone (TSH)on 03-31-2025 TSH 1.190 uIU/mL Normal 0.300-4.200 [facility] Comment on above: Performed By: #### L 506.1001, L501.9520, L500.4050, L506.0200, L100.0100, L500.4100, L503.0106, L501.9985, L501.5200 #### [facility] [address] [place], [address] Total proteinOrdered By: Marty Melendez on 03-31-2025 Protein [Mass/Vol] 7.2 g/dL 5.9-8.4 [facility] Triglycerides measurementOrd ered By: Nadiya Melendez on 03-31-2025 Triglyceride [Mass/Vol] 70 mg/dL <199 [facility] Comment on above: The drugs N-Acetylcy steine and Metamizole may falsely depress this assay. Normal range: <150 mg/dLBorderline High: 150-199 mg/dLHigh: 200-499 mg/dLVery High: >500 mg/dL Vitamin B12on 03-31-2025 Cobalamin (Vitamin B12) [Mass/Vol] 549 pg/mL Normal 180-914 [facility] Comment on above: Performed By: #### L 506.1001, L501.9520, L500.4050, L506.0200, L100.0100, L500.4100, L503.0106, L501.9985, L501.5200 #### [facility] [address] [facility] [place], [place], [address] Vitamin B12 ser/plasOrdered By: Nadiya Melendez on 03-31-2025 Cobalamin (Vitamin B12) [Mass/Vol] 549 pg/mL 180-914 [facility] Vitamin D,25 Hydroxyon 03-31 Vitamin D 25-OH 14.7 ng/mL Low 30-100 [facility] Comment on above: Result Comment: Safia min D Status Deficiency: <20 ng/mL (50nmol/L) Insufficiency: 20-30 ng/mL (50-75 nmol/L) Sufficiency: 30-100 ng/mL (75-250 nmol/L) Toxicity: >100 ng/mL (>250 nmol/L) Performed By: #### L 506.1001, L501.9520, L500.4050, L506.0200, L100.0100, L500.4100, L503.0106, L501.9985, L501.5200 #### [facility] [address] [place], [address] White blood cell (WBC) count Ordered By: Nadiya Melendez on 03-31-2025 WBC (Bld) [#/Vol] 11.4 10*3/uL High 4.4-11.0 [facility] Basic Metabolic Panelon 09-2 Anion gap [Moles/Vol] 12.2 mmol/L Normal 8.0-16.0 [facility] Comment on above: Performed By: #### B MP #### [facility] [address] [place] [address] Calcium [Mass/Vol] 8.6 mg/dL Normal 8.2-10.0 [facility] Comment on above: Performed By: #### B MP #### [facility] [address] [place] [address] Chloride [Moles/Vol] 104 mmol/L Normal 94-110 [facility] Comment on above: Performed By: #### B MP #### [facility] [address] [place] [address] CO2 [Moles/Vol] 30 mmol/L Normal 21-34 [facility] Comment on above: Performed By: #### B MP #### [facility] [address] [place] [address] Creatinine [Mass/Vol] 0.84 mg/dL Normal 0.50-1.17 [facility] Comment on above: Performed By: #### B MP #### [address] [place] [address] EGFR Other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
[2025-11-25] MEDS: Lidocaine 1% (20 ml mdv) 20 ML Vial 5 ML INFILT (20:35)
[2025-11-25] MEDS: Lidocaine/Epi/Tetracaine 50 ML 1 APPLIC TOPICAL (20:36)
[2025-11-25 21:22] VITALS: BP 144/88; PULSE 85; RESP 18; TEMP 36.6; O2SAT 100
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
== END 2025-11-25 21:29 | disposition home or self-care (01) ==
PROVIDERS: Emergency Provider Emergency Medicine; Visit Provider Emergency Medicine
DX: S61.210A Laceration without foreign body of right index finger without damage to nail, initial encounter (principal); J44.9 Chronic obstructive pulmonary disease, unspecified; S67.190A Crushing injury of right index finger, initial encounter; F41.9 Anxiety disorder, unspecified; I10 Essential (primary) hypertension; Z79.899 Other long term (current) drug therapy; F17.210 Nicotine dependence, cigarettes, uncomplicated; W31.9XXA Contact with unspecified machinery, initial encounter; Y93.89 Activity, other specified; Z23 Encounter for immunization
CPT/HCPCS: 12001; 73130; 99283